=== PATIENT | male | born 1950 | race Caucasian/White ===

== ENCOUNTER 2016-04-09 08:23 | Emergency (ER) | payer MEDICARE ==
[2016-04-09 09:00] LABS: ABSOLUTE LYMPHOCYTES (AUTO) 0.5 10^3/uL (0.5-4.7); ABSOLUTE MONOCYTES (AUTO) 0.8 10^3/uL (0.1-1.4); ABSOLUTE NEUT (AUTO) 3.4 10^3/uL (1.7-8.2); BASOPHILS % (AUTO) 0.4 % (0-2); EOSINOPHILS % (AUTO) 0.5 % (0-6); HEMATOCRIT 38.4 % (37.9-51.0); HEMOGLOBIN 13.5 g/dL (13.5-17.0); HGB HCT DIFFERENCE 2.1; LYMPHOCYTES % (AUTO) 10.5 % (13-45); MEAN CORPUSCULAR HEMOGLOBIN 31.2 pg (27.0-33.4); MEAN CORPUSCULAR HGB CONC 35.1 g/dL (32.0-36.0); MEAN CORPUSCULAR VOLUME 89 fl (80-97); MONOCYTES % (AUTO) 17.4 % (3-13); RED BLOOD COUNT 4.32 10^6/uL (4.35-5.55); RED CELL DISTRIBUTION WIDTH 13.2 % (11.5-14.0); SEGMENTED NEUTROPHILS % (AUTO) 71.2 % (42-78); WHITE BLOOD COUNT 4.8 10^3/uL (4.0-10.5)
[2016-04-09 09:15] LABS: ALANINE AMINOTRANSFERASE 15 U/L (21-72); ALBUMIN 3.2 g/dL (3.5-5.0); ALKALINE PHOSPHATASE 74 U/L (38-126); ANION GAP 11 (5-19); ASPARTATE AMINO TRANSFERASE 29 U/L (17-59); BILIRUBIN,TOTAL 1.7 mg/dL (0.2-1.3); BLOOD UREA NITROGEN 19 mg/dL (7-20); CALCIUM 8.4 mg/dL (8.4-10.2); CARBON DIOXIDE 23 mmol/L (22-30); CHLORIDE 104 mmol/L (98-107); CREATINE KINASE 345 U/L (55-170); CREATININE RESULT 1.03 mg/dL (0.52-1.25); GLUCOSE 98 mg/dL (75-110); POTASSIUM 4.1 mmol/L (3.6-5.0); SODIUM 137.8 mmol/L (137-145); TOTAL PROTEIN 6.6 g/dL (6.3-8.2)
[2016-04-09 09:26] LABS: CREATINE KINASE MB 0.83 ng/mL (<4.55); TROPONIN I 0.017 ng/mL
--- NOTE | 2016-04-09 11:01 | EKG REPORT ---
SEVERITY:- ABNORMAL ECG - SINUS RHYTHM MULTIPLE ATRIAL PREMATURE COMPLEXES NONSPECIFIC INTRAVENTRICULAR CONDUCTION DELAY NONSPECIFIC ST-T CHANGES- INFERIOR LEADS : Confirmed by: Jose Miguel Small MD 09-Apr-2016 11:00:57
[2016-04-09 11:26] LABS: APPEARANCE,URINE CLEAR; BILIRUBIN,URINE NEGATIVE (NEGATIVE); GLUCOSE, URINE NEGATIVE (NEGATIVE); KETONES,URINE 25 mg/dL (NEGATIVE); LEUKOCYTE ESTERASE,URINE NEGATIVE (NEGATIVE); NITRITE,URINE NEGATIVE (NEGATIVE); PROTEIN,URINE 30 mg/dL (NEGATIVE); URINE SPECIFIC GRAVITY 1.023
--- NOTE | 2016-04-09 11:58 | ER Document Report ---
ED General - General Chief Complaint: General Weakness Stated Complaint: DIZZINESS Mode of Arrival: Medic Information source: Patient Notes: Patient presents to the emergency department via EMS for 3 days of flu symptoms. Patient reports became lightheaded when he was walking out the door today and he was assisted to the ground. Patient reports that he hasn't been able to eat that much for the past few days but is drinking okay. Patient reports he also has had a nonproductive cough for the past couple days. Denies fever vomiting but reports he did have little bit of diarrhea on . Reports history of Parkinson's acid reflux. TRAVEL OUTSIDE OF THE [place] IN LAST 30 DAYS: No - HPI Onset: Other - 3 days Onset/Duration: Persistent Quality of pain: Achy Associated symptoms: Nonproductive cough Exacerbated by: Denies Relieved by: Denies Similar symptoms previously: No Recently seen / treated by doctor: No - Related Data Allergies/Adverse Reactions: No Known Allergies Allergy (Unverified 01/14/16 07:45) Past Medical History - General Information source: Patient - Social History Smoking Status: Unknown if Ever Smoked Cigarette use (# per day): No Frequency of alcohol use: None Drug Abuse: None Lives with: Other - [facility] Family History: Reviewed & Not Pertinent - Medical History Medical History: Other - parkinsons GI Medical History: Reports: Hx Gastroesophageal Reflux Disease Psychiatric Medical History: Reports: Hx Depression Surgical Hx: Negative Past Surgical History: Reports: Other - electric stimulator - Immunizations Hx Diphtheria, Pertussis, Tetanus Vaccination: Yes Review of Systems - Review of Systems Notes: Review HPI for review of systems., All other systems negative Physical Exam - Vital signs Vitals: Resp Pulse Ox 23 H 96 04/09/16 08:43 04/09/16 08:43 - Notes Notes: PHYSICAL EXAMINATION: GENERAL: nontoxic looking HEAD: Atraumatic, normocephalic. EYES: Pupils equal round and reactive to light, extraocular movements intact, sclera anicteric, conjunctiva are normal. ENT: nares patent, oropharynx clear without exudates. Moist mucous membranes. NECK: Normal range of motion, supple without lymphadenopathy LUNGS: RR even/unlabored decreased, +rhonchi, . 02sat 97% HEART: Regular rate and rhythm without murmurs ABDOMEN: Soft, no tenderness. No guarding, no rebound BACK: No c/o pain EXTREMITIES: Normal range of motion, no pitting edema. No cyanosis. NEUROLOGICAL: Cranial nerves grossly intact. PSYCH: Normal mood, normal affect. SKIN: Warm, Dry, normal turgor, no rashes or lesions noted Course - Re-evaluation Re-evalutation: 04/09/16 patient was instructed on pneumonia. Patient was instructed on medications importance of taking and follow-up with his primary care provider or return to the ER for concerns. He verbalized understanding. - Vital Signs Vital signs: Temp Pulse Resp BP Pulse Ox 97.4 F 68 20 108/68 97 04/09/16 12:35 04/09/16 12:35 04/09/16 12:35 04/09/16 12:35 04/09/16 12:35 - Laboratory Result Diagrams: 04/09/16 08:45 04/09/16 08:45 Laboratory results interpreted by me: 04/09/16 04/09/16 04/09/16 08:45 08:45 11:00 RBC 4.32 L Plt Count 101 L Lymphocytes % 10.5 L Monocytes % 17.4 H Total Bilirubin 1.7 H ALT 15 L Creatine Kinase 345 H Albumin 3.2 L Urine Protein 30 H Urine Ketones 25 H Urine Urobilinogen 2.0 H Discharge - Discharge Clinical Impression: Flu-like symptoms, Elevated blood pressure reading Pneumonia Qualifiers: Pneumonia type: due to unspecified organism Laterality: right Lung location: lower lobe of lung Qualified Code(s): J18.1 - Lobar pneumonia, unspecified organism Condition: Stable Disposition: HOME, SELF-CARE Instructions: Pneumonia (OM), Azithromycin (OM) Additional Instructions: *You have been evaluated for a cough, pneumonia, flu like symptoms, weakness *Take medication as prescribed *Increase fluids *Monitor your temperature, take Tylenol as indicated *Follow up with a primary care provider within 3 days for recheck *Return to ED for increasing fever, cough, worsening condition, changes, needs, trouble breathing, concerns Prescriptions: Azithromycin [Zithromax 250 mg Tablet] 250 mg PO ASDIR PRN #6 tablet PRN Reason: Forms: Elevated Blood Pressure
[2016-04-09 12:49] VITALS: BP 108/68
== END 2016-04-09 12:40 | disposition home or self-care (01) ==
LOC: ER 08:23
DX: J18.1 Lobar pneumonia, unspecified organism (principal); R03.0 Elevated blood-pressure reading, without diagnosis of hypertension; R53.1 Weakness; R42 Dizziness and giddiness; R05 Cough; R19.7 Diarrhea, unspecified; G20 Parkinson's disease
CPT/HCPCS: 36415; 71020; 80053; 81001; 82550; 82553; 84484; 85025; 87804; 93005; 93010; 99284

== ENCOUNTER 2016-04-14 13:23 | Inpatient (IN) | payer MEDICARE ==
[2016-04-14 15:40] LABS: ABSOLUTE LYMPHOCYTES (AUTO) 0.9 10^3/uL (0.5-4.7); ABSOLUTE MONOCYTES (AUTO) 1.3 10^3/uL (0.1-1.4); ABSOLUTE NEUT (AUTO) 8.1 10^3/uL (1.7-8.2); BASOPHILS % (AUTO) 0.1 % (0-2); EOSINOPHILS % (AUTO) 0.2 % (0-6); HEMATOCRIT 37.7 % (37.9-51.0); HGB HCT DIFFERENCE 1.3; LYMPHOCYTES % (AUTO) 8.6 % (13-45); MEAN CORPUSCULAR HEMOGLOBIN 30.8 pg (27.0-33.4); MEAN CORPUSCULAR HGB CONC 34.6 g/dL (32.0-36.0); MEAN CORPUSCULAR VOLUME 89 fl (80-97); MONOCYTES % (AUTO) 12.7 % (3-13); RED BLOOD COUNT 4.24 10^6/uL (4.35-5.55); RED CELL DISTRIBUTION WIDTH 12.9 % (11.5-14.0); SEGMENTED NEUTROPHILS % (AUTO) 78.4 % (42-78); WHITE BLOOD COUNT 10.4 10^3/uL (4.0-10.5)
[2016-04-14] MEDS ORDERED: CEFTRIAXONE 1 GM/D5W RTU 1 GM/50 ML RTUPB IV ONE (16:00)
[2016-04-14 16:19] LABS: ALANINE AMINOTRANSFERASE 15 U/L (21-72); ALBUMIN 3.4 g/dL (3.5-5.0); ALKALINE PHOSPHATASE 74 U/L (38-126); ANION GAP 11 (5-19); ASPARTATE AMINO TRANSFERASE 23 U/L (17-59); BLOOD UREA NITROGEN 18 mg/dL (7-20); CALCIUM 8.8 mg/dL (8.4-10.2); CARBON DIOXIDE 25 mmol/L (22-30); CHLORIDE 100 mmol/L (98-107); CREATININE RESULT 1.02 mg/dL (0.52-1.25); GLUCOSE 101 mg/dL (75-110); SODIUM 135.8 mmol/L (137-145); TOTAL PROTEIN 7.3 g/dL (6.3-8.2)
[2016-04-14] MEDS ORDERED: LEVOFLOXACIN 750 MG/D5W RTU 750 MG/150 ML RTUPB IV ONE (17:00)
[2016-04-14 17:45] LABS: APPEARANCE,URINE SLIGHTLY-CLOUDY; BILIRUBIN,URINE NEGATIVE (NEGATIVE); GLUCOSE, URINE NEGATIVE (NEGATIVE); KETONES,URINE TRACE mg/dL (NEGATIVE); LEUKOCYTE ESTERASE,URINE NEGATIVE (NEGATIVE); NITRITE,URINE NEGATIVE (NEGATIVE); PROTEIN,URINE 100 mg/dL (NEGATIVE)
[2016-04-14] MEDS ORDERED: (PENDING PHARMACY ID) (Acetaminophen [Pain Relief] 650 MG) PO PRN (17:46)
[2016-04-14] MEDS ORDERED: (PENDING PHARMACY ID) (Temazepam [Restoril] 30 MG) PO PRN (17:46)
[2016-04-14] MEDS: CEFTRIAXONE 1 GM/D5W RTU 1 GM/50 ML RTUPB IV SCH (17:56)
[2016-04-14] MEDS ORDERED: FLUOXETINE HCL 20 MG CAPSULE PO ONE (18:00)
--- NOTE | 2016-04-14 18:00 | EKG REPORT ---
SEVERITY:- ABNORMAL ECG - SINUS RHYTHM BORDERLINE LEFT AXIS DEVIATION PROBABLE POSTERIOR INFARCT ABNORMAL T, CONSIDER ISCHEMIA, INFERIOR LEADS : Confirmed by: Yogesh Friedman 14-Apr-2016 17:59:46
[2016-04-14] MEDS ORDERED: ACETAMINOPHEN 325 MG TABLET PO PRN (18:07)
[2016-04-14] MEDS: LEVOFLOXACIN 750 MG/D5W RTU 750 MG/150 ML RTUPB IV SCH (18:10)
[2016-04-14] MEDS ORDERED: ENOXAPARIN SODIUM INJ 40 MG/0.4 ML DISP.SYRIN SUBCUT ONE (19:00)
[2016-04-14 19:57] LABS: HEMATOCRIT 33.6 % (37.9-51.0); HEMOGLOBIN 11.8 g/dL (13.5-17.0); HGB HCT DIFFERENCE 1.8; MEAN CORPUSCULAR HEMOGLOBIN 30.9 pg (27.0-33.4); MEAN CORPUSCULAR HGB CONC 35.1 g/dL (32.0-36.0); MEAN CORPUSCULAR VOLUME 88 fl (80-97); RED BLOOD COUNT 3.82 10^6/uL (4.35-5.55); RED CELL DISTRIBUTION WIDTH 13.5 % (11.5-14.0)
[2016-04-14 20:18] LABS: PROTHROMBIN TIME 15.7 SEC (11.4-15.4)
[2016-04-14 20:24] LABS: CREATININE RESULT 0.88 mg/dL (0.52-1.25)
[2016-04-14] MEDS: CARBIDOPA/LEVODOPA ER 50-200 MG TABLET.SA PO SCH (21:31)
[2016-04-14] MEDS: TEMAZEPAM 15 MG CAPSULE PO PRN (21:31)
[2016-04-15] MEDS: LANSOPRAZOLE 30 MG TAB.RAP.DR PO SCH (05:31)
[2016-04-15] MEDS: ENOXAPARIN SODIUM INJ 40 MG/0.4 ML DISP.SYRIN SUBCUT SCH (08:04)
[2016-04-15] MEDS: ROPINIROLE HCL 1 MG TABLET PO SCH ×3 (08:07→17:24)
[2016-04-15] MEDS: FLUOXETINE HCL 20 MG CAPSULE PO SCH (09:44)
[2016-04-15] MEDS: CARBIDOPA/LEVODOPA ER 50-200 MG TABLET.SA PO SCH ×3 (11:32→21:24)
--- NOTE | 2016-04-15 15:14 | PDOC H&P ---
History of Present Illness Admission Date/PCP: 04/14/16 13:23 DOM PEGUERO MD History of Present Illness: LA GRIGSBY is a 65 year old male with history of Parkinson disease, resident of [facility], he was seen in the emergency room on and he was diagnosed with pneumonia, he was prescribed Zithromax. The chest x-ray done in the emergency room on 04/09/2016 showed subsegmental airspace disease in the right lower lobe,No effusion. He came to the office today because of worsening symptoms, cough, vomiting, chest x-ray was done it showed stable left lower lobe airspace opacity,There is a new right upper lobe air space disease consistent with pneumonia. Past Medical History Cardiac Medical History: Reports: Hypertension Neurological Medical History: Reports: Other - Parkinson disease GI Medical History: Reports: Gastroesophageal Reflux Disease Psychiatric Medical History: Reports: Depression Past Surgical History Past Surgical History: Reports: Other - electric stimulator Social History Smoking Status: Former Smoker Frequency of Alcohol Use: None Hx Recreational Drug Use: No Drugs: None Hx Prescription Drug Abuse: No Family History Family History: Reviewed & Not Pertinent Parental Family History Reviewed: Yes Children Family History Reviewed: Yes Sibling(s) Family History Reviewed.: Yes Medication/Allergy Home Medications: Acetaminophen [Pain Relief] 650 mg PO Q4HP PRN 04/14/16 Carbidopa/Levodopa [Sinemet Cr 50-200 Tablet] 1 tab PO DAILY@,,04/14/16 Carbidopa/Levodopa [Sinemet Cr 50-200 Tablet] 2 tab PO QAM 04/14/16 Celecoxib [Celebrex 200 mg Capsule] 200 mg PO DAILY 04/14/16 Cyanocobalamin (Vitamin B-12) [Vitamin B-12] 1,000 mcg PO [id number] 04/14/16 Fluoxetine HCl [Prozac 20 mg Capsule] 20 mg PO DAILY 04/14/16 Omeprazole 40 mg PO QAM 04/14/16 Ropinirole HCl 1 mg PO DAILY@08,,04/14/16 Temazepam [Restoril] 30 mg PO HSP PRN 04/14/16 Allergies/Adverse Reactions: No Known Allergies Allergy (Unverified 01/14/16 07:45) Review of Systems Constitutional: PRESENT: chills, fatigue Ears: PRESENT: hearing changes Cardiovascular: ABSENT: as per HPI, chest pain, dyspnea on exertion, edema, orthropnea, palpitations, other Gastrointestinal: PRESENT: nausea, vomiting Musculoskeletal: PRESENT: back pain Neurological: PRESENT: abnormal speech, dizziness, tremor(s) Endocrine: ABSENT: as per HPI, cold intolerance, flushing, heat intolerance, menstrual abnormalities, polydipsia, polyphagia, polyuria, other Physical Exam Vital Signs: Temp Pulse Resp BP Pulse Ox 97.6 F 72 18 147/91 H 97 04/15/16 13:00 04/15/16 14:00 04/15/16 13:00 04/15/16 13:00 04/15/16 13:00 Intake & Output 04/14/16 04/15/16 04/16/16 06:59 06:59 06:59 Intake Total 1260 10 Output Total 1250 Balance 10 10 Weight 102.4 kg General appearance: PRESENT: obese Eye exam: PRESENT: PERRLA Respiratory exam: PRESENT: rales Cardiovascular exam: PRESENT: +S1, +S2 GI/Abdominal exam: PRESENT: soft Gentrourinary exam: PRESENT: lesions Neurological exam: PRESENT: alert, abnormal gait Focused psych exam: PRESENT: restlessness Results Laboratory Results: 04/14/16 19:46 04/14/16 19:46 04/14/16 04/14/16 04/14/16 15:10 15:10 17:25 WBC 10.4 RBC 4.24 L Hgb 13.0 L Hct 37.7 L MCV 89 MCH 30.8 MCHC 34.6 RDW 12.9 Plt Count 140 L Seg Neutrophils % 78.4 H Lymphocytes % 8.6 L Monocytes % 12.7 Eosinophils % 0.2 Basophils % 0.1 Absolute Neutrophils 8.1 Absolute Lymphocytes 0.9 Absolute Monocytes 1.3 Absolute Eosinophils 0.0 Absolute Basophils 0.0 Sodium 135.8 L Potassium 4.0 Chloride 100 Carbon Dioxide 25 Anion Gap 11 BUN 18 Creatinine 1.02 Est GFR ( Amer) > 60 Est GFR (Non-Af Amer) > 60 Glucose 101 Calcium 8.8 Total Bilirubin 2.0 H AST 23 ALT 15 L Alkaline Phosphatase 74 Total Protein 7.3 Albumin 3.4 L Urine Color DARK YELLOW Urine Appearance SLIGHTLY-CLOUDY Urine pH 6.0 Ur Specific Kidder 1.020 Urine Protein 100 H Urine Glucose (UA) NEGATIVE Urine Ketones TRACE H Urine Blood NEGATIVE Urine Nitrite NEGATIVE Ur Leukocyte Esterase NEGATIVE Urine WBC (Auto) 1 Urine RBC (Auto) 1 04/14/16 04/14/16 19:46 19:46 WBC 7.0 RBC 3.82 L Hgb 11.8 L Hct 33.6 L MCV 88 MCH 30.9 MCHC 35.1 RDW 13.5 Plt Count 122 L Seg Neutrophils % Lymphocytes % Monocytes % Eosinophils % Basophils % Absolute Neutrophils Absolute Lymphocytes Absolute Monocytes Absolute Eosinophils Absolute Basophils Sodium Potassium Chloride Carbon Dioxide Anion Gap BUN Creatinine 0.88 Est GFR ( Amer) > 60 Est GFR (Non-Af Amer) > 60 Glucose Calcium Total Bilirubin AST ALT Alkaline Phosphatase Total Protein Albumin Urine Color Urine Appearance Urine pH Ur Specific Kidder Urine Protein Urine Glucose (UA) Urine Ketones Urine Blood Urine Nitrite Ur Leukocyte Esterase Urine WBC (Auto) Urine RBC (Auto) Impressions: Chest X-Ray 04/14/16 00:00 IMPRESSION: NEW RIGHT UPPER LOBE AIRSPACE DISEASE COMPATIBLE WITH PNEUMONIA Head CT 04/14/16 00:00 IMPRESSION: NO ACUTE INTRACRANIAL PROCESS. NO SIGNIFICANT CHANGE FROM PRIOR STUDY. Assessment & Plan - Diagnosis (1) Pneumonia Qualifiers: Pneumonia type: due to unspecified organism Laterality: right Lung location: upper lobe of lung Qualified Code(s): J18.1 - Lobar pneumonia, unspecified organism Is this a current diagnosis for this admission?: YesPlan: He has right upper lobe pneumonia, about 4 days ago,He had left lower lobe pneumonia. He has failed outpatient treatment, 4 days ago when he was seen in emergency room he had the left lower lobe pneumonia and he was prescribed Zithromax. He now have right upper lobe pneumonia. This is new suggesting worsening of the pneumonia process. Is admitted to be treated with IV antibiotic, Rocephin and and Levaquin (2) Failure of outpatient treatment Is this a current diagnosis for this admission?: Yes (3) Parkinson disease Is this a current diagnosis for this admission?: Yes
[2016-04-15] MEDS: CEFTRIAXONE 1 GM/D5W RTU 1 GM/50 ML RTUPB IV SCH (17:23)
[2016-04-15] MEDS: LEVOFLOXACIN 750 MG/D5W RTU 750 MG/150 ML RTUPB IV SCH (18:00)
[2016-04-15] MEDS: TEMAZEPAM 15 MG CAPSULE PO PRN (21:24)
[2016-04-16] MEDS: LANSOPRAZOLE 30 MG TAB.RAP.DR PO SCH (06:39)
[2016-04-16] MEDS: ROPINIROLE HCL 1 MG TABLET PO SCH ×3 (08:13→17:11)
[2016-04-16] MEDS: ENOXAPARIN SODIUM INJ 40 MG/0.4 ML DISP.SYRIN SUBCUT SCH (08:14)
[2016-04-16] MEDS: CARBIDOPA/LEVODOPA ER 50-200 MG TABLET.SA PO SCH ×3 (11:39→21:57)
[2016-04-16] MEDS: FLUOXETINE HCL 20 MG CAPSULE PO SCH (11:39)
[2016-04-16] MEDS: CEFTRIAXONE 1 GM/D5W RTU 1 GM/50 ML RTUPB IV SCH (17:11)
--- NOTE | 2016-04-16 17:34 | PDOC PROGRESS REPORT ---
Subjective Progress Note for:: 04/16/16 Subjective:: Patient is improving. No new complaints Physical Exam Vital Signs: Temp Pulse Resp BP Pulse Ox 98.8 F 61 20 127/69 H 95 04/16/16 15:18 04/16/16 15:18 04/16/16 15:18 04/16/16 15:18 04/16/16 15:18 Intake & Output 04/15/16 04/16/16 04/17/16 06:59 06:59 06:59 Intake Total 1260 920 408 Output Total 1250 650 970 Balance 10 270 -562 Weight 102.4 kg 99.9 kg General appearance: PRESENT: no acute distress Eye exam: PRESENT: PERRLA Respiratory exam: PRESENT: crackles Cardiovascular exam: PRESENT: +S1, +S2 GI/Abdominal exam: PRESENT: soft Neurological exam: PRESENT: alert, CN II-XII grossly intact Results Laboratory Results: 04/14/16 19:46 04/14/16 19:46 04/14/16 17:25 Clean Catch Midstream Urine Culture - Final Mixed Urogenital Nicki Impressions: Chest X-Ray 04/14/16 00:00 IMPRESSION: NEW RIGHT UPPER LOBE AIRSPACE DISEASE COMPATIBLE WITH PNEUMONIA Head CT 04/14/16 00:00 IMPRESSION: NO ACUTE INTRACRANIAL PROCESS. NO SIGNIFICANT CHANGE FROM PRIOR STUDY. Assessment & Plan - Diagnosis (1) Pneumonia Qualifiers: Pneumonia type: due to unspecified organism Laterality: right Lung location: upper lobe of lung Qualified Code(s): J18.1 - Lobar pneumonia, unspecified organism Is this a current diagnosis for this admission?: Yes (2) Failure of outpatient treatment Is this a current diagnosis for this admission?: Yes (3) Parkinson disease Is this a current diagnosis for this admission?: Yes
[2016-04-16] MEDS: LEVOFLOXACIN 750 MG/D5W RTU 750 MG/150 ML RTUPB IV SCH (17:41)
[2016-04-16] MEDS: TEMAZEPAM 15 MG CAPSULE PO PRN (21:57)
[2016-04-17] MEDS: LANSOPRAZOLE 30 MG TAB.RAP.DR PO SCH (05:02)
[2016-04-17] MEDS: ROPINIROLE HCL 1 MG TABLET PO SCH ×3 (08:35→18:26)
[2016-04-17] MEDS: ENOXAPARIN SODIUM INJ 40 MG/0.4 ML DISP.SYRIN SUBCUT SCH (08:35)
[2016-04-17] MEDS: FLUOXETINE HCL 20 MG CAPSULE PO SCH (09:35)
[2016-04-17] MEDS: CARBIDOPA/LEVODOPA ER 50-200 MG TABLET.SA PO SCH ×3 (12:47→21:35)
[2016-04-17] MEDS: CEFTRIAXONE 1 GM/D5W RTU 1 GM/50 ML RTUPB IV SCH (18:27)
[2016-04-17] MEDS: LEVOFLOXACIN 750 MG/D5W RTU 750 MG/150 ML RTUPB IV SCH (18:27)
--- NOTE | 2016-04-17 20:38 | PDOC PROGRESS REPORT ---
Subjective Progress Note for:: 04/17/16 Subjective:: Patient seen by the bedside, he was admitted for pneumonia Physical Exam Vital Signs: Temp Pulse Resp BP Pulse Ox 98.2 F 65 22 H 115/74 98 04/17/16 16:58 04/17/16 16:58 04/17/16 16:58 04/17/16 16:58 04/17/16 16:58 Intake & Output 04/16/16 04/17/16 04/18/16 06:59 06:59 06:59 Intake Total 920 408 860 Output Total 650 1770 660 Balance 270 -1362 200 Weight 99.9 kg General appearance: PRESENT: no acute distress Eye exam: PRESENT: PERRLA Respiratory exam: PRESENT: crackles Cardiovascular exam: PRESENT: +S1, +S2 GI/Abdominal exam: PRESENT: soft Results Laboratory Results: 04/14/16 19:46 04/14/16 19:46 Impressions: Chest X-Ray 04/14/16 00:00 IMPRESSION: NEW RIGHT UPPER LOBE AIRSPACE DISEASE COMPATIBLE WITH PNEUMONIA Head CT 04/14/16 00:00 IMPRESSION: NO ACUTE INTRACRANIAL PROCESS. NO SIGNIFICANT CHANGE FROM PRIOR STUDY. Assessment & Plan - Diagnosis (1) Pneumonia Qualifiers: Pneumonia type: due to unspecified organism Laterality: right Lung location: upper lobe of lung Qualified Code(s): J18.1 - Lobar pneumonia, unspecified organism Is this a current diagnosis for this admission?: Yes (2) Failure of outpatient treatment Is this a current diagnosis for this admission?: Yes (3) Parkinson disease Is this a current diagnosis for this admission?: Yes
[2016-04-17] MEDS: TEMAZEPAM 15 MG CAPSULE PO PRN (21:39)
[2016-04-18] MEDS: LANSOPRAZOLE 30 MG TAB.RAP.DR PO SCH (05:24)
[2016-04-18] MEDS: ROPINIROLE HCL 1 MG TABLET PO SCH ×3 (07:51→17:38)
[2016-04-18] MEDS: ENOXAPARIN SODIUM INJ 40 MG/0.4 ML DISP.SYRIN SUBCUT SCH (07:51)
[2016-04-18] MEDS: FLUOXETINE HCL 20 MG CAPSULE PO SCH (09:18)
[2016-04-18] MEDS: CARBIDOPA/LEVODOPA ER 50-200 MG TABLET.SA PO SCH ×3 (14:25→21:16)
[2016-04-18] MEDS: CEFTRIAXONE 1 GM/D5W RTU 1 GM/50 ML RTUPB IV SCH (17:38)
[2016-04-18] MEDS: LEVOFLOXACIN 750 MG TABLET PO SCH (17:38)
--- NOTE | 2016-04-18 18:03 | PDOC PROGRESS REPORT ---
Subjective Progress Note for:: 04/18/16 Subjective:: Patient we be appropriate for [facility] home for rehabilitation. We will consult discharge planning to make arrangement for that Physical Exam Vital Signs: Temp Pulse Resp BP Pulse Ox 97.9 F 68 18 116/67 97 04/18/16 15:43 04/18/16 15:43 04/18/16 15:43 04/18/16 15:43 04/18/16 15:43 Intake & Output 04/17/16 04/18/16 04/19/16 06:59 06:59 06:59 Intake Total 408 1420 1000 Output Total 1770 1260 900 Balance -1362 160 100 General appearance: PRESENT: no acute distress Eye exam: PRESENT: PERRLA Respiratory exam: PRESENT: clear to auscultation cayetano Cardiovascular exam: PRESENT: +S1, +S2 GI/Abdominal exam: PRESENT: soft Neurological exam: PRESENT: alert Results Laboratory Results: 04/14/16 19:46 04/14/16 19:46 Impressions: Chest X-Ray 04/14/16 00:00 IMPRESSION: NEW RIGHT UPPER LOBE AIRSPACE DISEASE COMPATIBLE WITH PNEUMONIA Head CT 04/14/16 00:00 IMPRESSION: NO ACUTE INTRACRANIAL PROCESS. NO SIGNIFICANT CHANGE FROM PRIOR STUDY. Assessment & Plan - Diagnosis (1) Pneumonia Qualifiers: Pneumonia type: due to unspecified organism Laterality: right Lung location: upper lobe of lung Qualified Code(s): J18.1 - Lobar pneumonia, unspecified organism Is this a current diagnosis for this admission?: YesPlan: Patient to continue IV antibiotic and we make arrangement for [facility] (2) Failure of outpatient treatment Is this a current diagnosis for this admission?: Yes (3) Parkinson disease Is this a current diagnosis for this admission?: Yes
[2016-04-18] MEDS: TEMAZEPAM 15 MG CAPSULE PO PRN (21:16)
[2016-04-19] MEDS: LANSOPRAZOLE 30 MG TAB.RAP.DR PO SCH (05:14)
[2016-04-19] MEDS: ROPINIROLE HCL 1 MG TABLET PO SCH ×3 (08:02→17:29)
[2016-04-19] MEDS: ENOXAPARIN SODIUM INJ 40 MG/0.4 ML DISP.SYRIN SUBCUT SCH (08:02)
[2016-04-19] MEDS: FLUOXETINE HCL 20 MG CAPSULE PO SCH (10:05)
[2016-04-19] MEDS: CARBIDOPA/LEVODOPA ER 50-200 MG TABLET.SA PO SCH ×3 (14:10→21:38)
--- NOTE | 2016-04-19 16:50 | PDOC PROGRESS REPORT ---
Subjective Progress Note for:: 04/19/16 Subjective:: Patient seen by the bedside, the plan is to transfer him to rehabilitation, the discharge planning is working on that Physical Exam Vital Signs: Temp Pulse Resp BP Pulse Ox 97.7 F 61 20 129/88 H 100 04/19/16 08:15 04/19/16 14:00 04/19/16 08:15 04/19/16 08:15 04/19/16 08:15 Intake & Output 04/18/16 04/19/16 04/20/16 06:59 06:59 06:59 Intake Total 1420 1765 Output Total 1260 1700 Balance 160 65 General appearance: PRESENT: no acute distress Eye exam: PRESENT: PERRLA Respiratory exam: PRESENT: clear to auscultation cayetano Cardiovascular exam: PRESENT: +S1, +S2 Results Laboratory Results: 04/14/16 19:46 04/14/16 19:46 04/14/16 15:25 Blood Blood Culture - Final NO GROWTH IN 5 DAYS 04/14/16 15:10 Blood Blood Culture - Final NO GROWTH IN 5 DAYS Impressions: Chest X-Ray 04/14/16 00:00 IMPRESSION: NEW RIGHT UPPER LOBE AIRSPACE DISEASE COMPATIBLE WITH PNEUMONIA Head CT 04/14/16 00:00 IMPRESSION: NO ACUTE INTRACRANIAL PROCESS. NO SIGNIFICANT CHANGE FROM PRIOR STUDY. Assessment & Plan - Diagnosis (1) Pneumonia Qualifiers: Pneumonia type: due to unspecified organism Laterality: right Lung location: upper lobe of lung Qualified Code(s): J18.1 - Lobar pneumonia, unspecified organism Is this a current diagnosis for this admission?: Yes (2) Failure of outpatient treatment Is this a current diagnosis for this admission?: Yes (3) Parkinson disease Is this a current diagnosis for this admission?: Yes
[2016-04-19] MEDS: LEVOFLOXACIN 750 MG TABLET PO SCH (17:29)
[2016-04-19] MEDS: CEFTRIAXONE 1 GM/D5W RTU 1 GM/50 ML RTUPB IV SCH (17:29)
[2016-04-19] MEDS: TEMAZEPAM 15 MG CAPSULE PO PRN (21:38)
[2016-04-20] MEDS: LANSOPRAZOLE 30 MG TAB.RAP.DR PO SCH (06:03)
[2016-04-20] MEDS: ROPINIROLE HCL 1 MG TABLET PO SCH ×3 (07:59→17:10)
[2016-04-20] MEDS: FLUOXETINE HCL 20 MG CAPSULE PO SCH (10:02)
[2016-04-20] MEDS: CARBIDOPA/LEVODOPA ER 50-200 MG TABLET.SA PO SCH ×3 (12:54→21:57)
[2016-04-20] MEDS: LEVOFLOXACIN 750 MG TABLET PO SCH (17:10)
[2016-04-20] MEDS: CEFTRIAXONE 1 GM/D5W RTU 1 GM/50 ML RTUPB IV SCH (17:10)
[2016-04-20] MEDS: TEMAZEPAM 15 MG CAPSULE PO PRN (21:57)
[2016-04-21] MEDS: LANSOPRAZOLE 30 MG TAB.RAP.DR PO SCH (06:30)
[2016-04-21] MEDS: FLUOXETINE HCL 20 MG CAPSULE PO SCH (09:41)
[2016-04-21] MEDS: ROPINIROLE HCL 1 MG TABLET PO SCH ×3 (09:41→17:19)
[2016-04-21] MEDS: CARBIDOPA/LEVODOPA ER 50-200 MG TABLET.SA PO SCH ×3 (12:40→22:55)
--- NOTE | 2016-04-21 16:20 | PDOC PROGRESS REPORT ---
Subjective Progress Note for:: 04/20/16 Subjective:: Patient was seen by the bedside. Still waiting for a bed for placement in the residential for rehabilitation Physical Exam Vital Signs: Temp Pulse Resp BP Pulse Ox 98.6 F 69 20 106/73 96 04/20/16 16:00 04/20/16 16:00 04/20/16 16:00 04/20/16 16:00 04/20/16 16:00 Intake & Output 04/19/16 04/20/16 04/21/16 06:59 06:59 06:59 Intake Total 1765 1350 0 Output Total 1700 2070 280 Balance 65 -720 -280 General appearance: PRESENT: no acute distress Eye exam: PRESENT: PERRLA Respiratory exam: PRESENT: clear to auscultation cayetano Cardiovascular exam: PRESENT: +S1, +S2 GI/Abdominal exam: PRESENT: soft Results Laboratory Results: 04/14/16 19:46 04/14/16 19:46 04/14/16 15:25 Blood Blood Culture - Final NO GROWTH IN 5 DAYS 04/14/16 15:10 Blood Blood Culture - Final NO GROWTH IN 5 DAYS Impressions: Chest X-Ray 04/14/16 00:00 IMPRESSION: NEW RIGHT UPPER LOBE AIRSPACE DISEASE COMPATIBLE WITH PNEUMONIA Head CT 04/14/16 00:00 IMPRESSION: NO ACUTE INTRACRANIAL PROCESS. NO SIGNIFICANT CHANGE FROM PRIOR STUDY. Assessment & Plan - Diagnosis (1) Pneumonia Qualifiers: Pneumonia type: due to unspecified organism Laterality: right Lung location: upper lobe of lung Qualified Code(s): J18.1 - Lobar pneumonia, unspecified organism Is this a current diagnosis for this admission?: Yes (2) Failure of outpatient treatment Is this a current diagnosis for this admission?: Yes (3) Parkinson disease Is this a current diagnosis for this admission?: Yes
--- NOTE | 2016-04-21 16:22 | PDOC PROGRESS REPORT ---
Subjective Progress Note for:: 04/21/16 Subjective:: Patient was seen by the bedside. Still waiting for a bed for placement in the [facility] for rehabilitation Physical Exam Vital Signs: Temp Pulse Resp BP Pulse Ox 98.3 F 68 17 108/85 98 04/21/16 15:23 04/21/16 15:23 04/21/16 15:23 04/21/16 15:23 04/21/16 15:23 Intake & Output 04/20/16 04/21/16 04/22/16 06:59 06:59 06:59 Intake Total 1350 450 603 Output Total 2070 580 1000 Balance -720 130 -397 Weight 102.8 kg General appearance: PRESENT: no acute distress Eye exam: PRESENT: PERRLA Respiratory exam: PRESENT: clear to auscultation cayetano Cardiovascular exam: PRESENT: +S1, +S2 GI/Abdominal exam: PRESENT: soft Neurological exam: PRESENT: alert Results Laboratory Results: 04/14/16 19:46 04/14/16 19:46 Impressions: Chest X-Ray 04/14/16 00:00 IMPRESSION: NEW RIGHT UPPER LOBE AIRSPACE DISEASE COMPATIBLE WITH PNEUMONIA Head CT 04/14/16 00:00 IMPRESSION: NO ACUTE INTRACRANIAL PROCESS. NO SIGNIFICANT CHANGE FROM PRIOR STUDY. Assessment & Plan - Diagnosis (1) Pneumonia Qualifiers: Pneumonia type: due to unspecified organism Laterality: right Lung location: upper lobe of lung Qualified Code(s): J18.1 - Lobar pneumonia, unspecified organism Is this a current diagnosis for this admission?: Yes (2) Failure of outpatient treatment Is this a current diagnosis for this admission?: Yes (3) Parkinson disease Is this a current diagnosis for this admission?: Yes
[2016-04-21] MEDS: TEMAZEPAM 15 MG CAPSULE PO PRN (22:57)
[2016-04-22] MEDS: LANSOPRAZOLE 30 MG TAB.RAP.DR PO SCH (07:05)
[2016-04-22] MEDS: ROPINIROLE HCL 1 MG TABLET PO SCH ×3 (09:21→17:06)
[2016-04-22] MEDS: FLUOXETINE HCL 20 MG CAPSULE PO SCH (09:22)
--- NOTE | 2016-04-22 10:45 | PDOC PROGRESS REPORT ---
Subjective Progress Note for:: 04/22/16 Subjective:: Patient is currently doing same and waiting for transfer to the rehabilitation. Patient's denied any other complaints and n Physical Exam Vital Signs: Temp Pulse Resp BP Pulse Ox 98.1 F 70 20 120/83 98 04/22/16 07:32 04/22/16 07:32 04/22/16 07:32 04/22/16 07:32 04/22/16 07:32 Intake & Output 04/21/16 04/22/16 04/23/16 06:59 06:59 06:59 Intake Total 450 2123 Output Total 580 2050 Balance -130 73 Weight 102.8 kg 97.2 kg General appearance: PRESENT: no acute distress Eye exam: PRESENT: PERRLA Mouth exam: PRESENT: neck supple Respiratory exam: PRESENT: clear to auscultation cayetano Cardiovascular exam: PRESENT: +S1, +S2 GI/Abdominal exam: PRESENT: normal bowel sounds, soft. ABSENT: tenderness Extremities exam: ABSENT: pedal edema Neurological exam: PRESENT: alert, awake Results Laboratory Results: 04/14/16 19:46 04/14/16 19:46 Impressions: Chest X-Ray 04/14/16 00:00 IMPRESSION: NEW RIGHT UPPER LOBE AIRSPACE DISEASE COMPATIBLE WITH PNEUMONIA Head CT 04/14/16 00:00 IMPRESSION: NO ACUTE INTRACRANIAL PROCESS. NO SIGNIFICANT CHANGE FROM PRIOR STUDY. Assessment & Plan - Diagnosis (1) Parkinson disease Is this a current diagnosis for this admission?: YesPlan: Stable (2) Pneumonia Qualifiers: Pneumonia type: due to unspecified organism Laterality: right Lung location: upper lobe of lung Qualified Code(s): J18.1 - Lobar pneumonia, unspecified organism Is this a current diagnosis for this admission?: YesPlan: Continuous current medication - Time Time Spent with patient: 15-24 minutes Medications reviewed and adjusted accordingly: Yes Anticipated discharge: SNF - Inpatient Certification Medical Necessity: Need Close Monitoring Due to Risk of Patient Decompensation Post Hospital Care: D/C Accounts Receivable Coordinator Documentation
[2016-04-22] MEDS: CARBIDOPA/LEVODOPA ER 50-200 MG TABLET.SA PO SCH ×3 (12:41→21:32)
[2016-04-23] MEDS: LANSOPRAZOLE 30 MG TAB.RAP.DR PO SCH (05:06)
[2016-04-23] MEDS: ROPINIROLE HCL 1 MG TABLET PO SCH ×3 (08:25→17:35)
[2016-04-23] MEDS: FLUOXETINE HCL 20 MG CAPSULE PO SCH (10:41)
--- NOTE | 2016-04-23 11:16 | PDOC PROGRESS REPORT ---
Subjective Progress Note for:: 04/23/16 Subjective:: Patient is currently doing same and waiting for transfer to the rehabilitation. Patient's denied any other complaints and n Physical Exam Vital Signs: Temp Pulse Resp BP Pulse Ox 97.7 F 55 L 20 140/85 H 98 04/23/16 07:38 04/23/16 07:38 04/23/16 07:38 04/23/16 07:38 04/23/16 07:38 Intake & Output 04/22/16 04/23/16 04/24/16 06:59 06:59 06:59 Intake Total 3 1510 Output Total 2049 850 Balance 73 660 Weight 97.2 kg General appearance: PRESENT: no acute distress, well-developed, well-nourished Head exam: PRESENT: atraumatic, normocephalic Eye exam: PRESENT: conjunctiva pink, EOMI, PERRLA. ABSENT: scleral icterus Ear exam: PRESENT: normal external ear exam Mouth exam: PRESENT: moist, tongue midline Neck exam: PRESENT: full ROM. ABSENT: carotid bruit, JVD, lymphadenopathy, thyromegaly Respiratory exam: PRESENT: clear to auscultation cayetano Cardiovascular exam: PRESENT: RRR. ABSENT: diastolic murmur, rubs, systolic murmur Pulses: PRESENT: normal dorsalis pedis pul, +2 pedal pulses bilateral Vascular exam: PRESENT: normal capillary refill GI/Abdominal exam: PRESENT: normal bowel sounds, soft. ABSENT: distended, guarding, mass, organolmegaly, rebound, tenderness Rectal exam: PRESENT: deferred Neurological exam: PRESENT: alert, altered, awake. ABSENT: motor sensory deficit Psychiatric exam: PRESENT: appropriate affect, normal mood. ABSENT: homicidal ideation, suicidal ideation Skin exam: PRESENT: dry, intact, warm. ABSENT: cyanosis, rash Results Laboratory Results: 04/14/16 19:46 04/14/16 19:46 Impressions: Chest X-Ray 04/14/16 00:00 IMPRESSION: NEW RIGHT UPPER LOBE AIRSPACE DISEASE COMPATIBLE WITH PNEUMONIA Head CT 04/14/16 00:00 IMPRESSION: NO ACUTE INTRACRANIAL PROCESS. NO SIGNIFICANT CHANGE FROM PRIOR STUDY. Assessment & Plan - Diagnosis (1) Parkinson disease Is this a current diagnosis for this admission?: YesPlan: Stable (2) Pneumonia Qualifiers: Pneumonia type: due to unspecified organism Laterality: right Lung location: upper lobe of lung Qualified Code(s): J18.1 - Lobar pneumonia, unspecified organism Is this a current diagnosis for this admission?: YesPlan: Continuous current medication - Time Time Spent with patient: 15-24 minutes Medications reviewed and adjusted accordingly: Yes Anticipated discharge: SNF Within: Other - Inpatient Certification Medical Necessity: Need Close Monitoring Due to Risk of Patient Decompensation, Need for IV Antibiotics Post Hospital Care: D/C Bilingual Loan Processor Documentation - Plan Summary Plan Summary: Continuous current medication and wait for possible rehabilitation
[2016-04-23] MEDS: CARBIDOPA/LEVODOPA ER 50-200 MG TABLET.SA PO SCH ×3 (12:21→21:46)
[2016-04-24] MEDS: LANSOPRAZOLE 30 MG TAB.RAP.DR PO SCH (05:43)
[2016-04-24] MEDS: ROPINIROLE HCL 1 MG TABLET PO SCH ×3 (09:52→17:15)
[2016-04-24] MEDS: FLUOXETINE HCL 20 MG CAPSULE PO SCH (09:52)
[2016-04-24] MEDS: CARBIDOPA/LEVODOPA ER 50-200 MG TABLET.SA PO SCH ×3 (12:00→22:02)
--- NOTE | 2016-04-24 19:37 | PDOC PROGRESS REPORT ---
Subjective Progress Note for:: 04/24/16 Subjective:: Patient seen by the bedside there is no new complaints Physical Exam Vital Signs: Temp Pulse Resp BP Pulse Ox 98.4 F 68 20 85/58 L 99 04/24/16 17:09 04/24/16 17:09 04/24/16 17:09 04/24/16 17:09 04/24/16 11:56 Intake & Output 04/23/16 04/24/16 04/25/16 06:59 06:59 06:59 Intake Total 1510 1320 760 Output Total 850 1885 600 Balance 660 -565 160 General appearance: PRESENT: no acute distress Eye exam: PRESENT: PERRLA Respiratory exam: PRESENT: rales Cardiovascular exam: PRESENT: +S1, +S2 GI/Abdominal exam: PRESENT: soft Neurological exam: PRESENT: alert Results Laboratory Results: 04/14/16 19:46 04/14/16 19:46 Impressions: Chest X-Ray 04/14/16 00:00 IMPRESSION: NEW RIGHT UPPER LOBE AIRSPACE DISEASE COMPATIBLE WITH PNEUMONIA Head CT 04/14/16 00:00 IMPRESSION: NO ACUTE INTRACRANIAL PROCESS. NO SIGNIFICANT CHANGE FROM PRIOR STUDY. Assessment & Plan - Diagnosis (1) Pneumonia Qualifiers: Pneumonia type: due to unspecified organism Laterality: right Lung location: upper lobe of lung Qualified Code(s): J18.1 - Lobar pneumonia, unspecified organism Is this a current diagnosis for this admission?: Yes (2) Failure of outpatient treatment Is this a current diagnosis for this admission?: Yes (3) Parkinson disease Is this a current diagnosis for this admission?: Yes
[2016-04-24] MEDS: TEMAZEPAM 15 MG CAPSULE PO PRN (22:03)
[2016-04-25] MEDS: LANSOPRAZOLE 30 MG TAB.RAP.DR PO SCH (05:02)
[2016-04-25] MEDS: ROPINIROLE HCL 1 MG TABLET PO SCH ×3 (08:38→18:02)
[2016-04-25] MEDS: FLUOXETINE HCL 20 MG CAPSULE PO SCH (10:15)
[2016-04-25] MEDS: CARBIDOPA/LEVODOPA ER 50-200 MG TABLET.SA PO SCH ×3 (12:05→21:09)
--- NOTE | 2016-04-25 17:52 | PDOC TRANSFER SUMMARY ---
General - Admit/Disc Date/PCP Admission Date/Primary Care Provider: 04/14/16 13:23 DOM PEGUERO MD Discharge Date: 04/25/16 - Discharge Diagnosis (1) Pneumonia Is this a current diagnosis for this admission?: Yes (2) Failure of outpatient treatment Is this a current diagnosis for this admission?: Yes (3) Parkinson disease Is this a current diagnosis for this admission?: Yes - Additional Information Home Medications: Acetaminophen [Pain Relief] 650 mg PO Q4HP PRN 04/14/16 Carbidopa/Levodopa [Sinemet Cr 50-200 Tablet] 1 tab PO DAILY@,,04/14/16 Carbidopa/Levodopa [Sinemet Cr 50-200 Tablet] 2 tab PO QAM 04/14/16 Cyanocobalamin (Vitamin B-12) [Vitamin B-12] 1,000 mcg PO U2MHGCD 04/14/16 Fluoxetine HCl [Prozac 20 mg Capsule] 20 mg PO DAILY 04/14/16 Omeprazole 40 mg PO QAM 04/14/16 Ropinirole HCl 1 mg PO DAILY@08,,04/14/16 Temazepam [Restoril] 30 mg PO HSP PRN 04/14/16 History of Present Illness Admission Date/PCP: 04/14/16 13:23 DOM PEGUERO MD History of Present Illness: LA GRIGSBY is a 65 year old male with history of Parkinson disease, resident of [facility] assisted [facility] facility, he was seen in the emergency room on and he was diagnosed with pneumonia, he was prescribed Zithromax. The chest x-ray done in the emergency room on 04/09/2016 showed subsegmental airspace disease in the right lower lobe,No effusion. He came to the office today because of worsening symptoms, cough, vomiting, chest x-ray was done it showed stable left lower lobe airspace opacity,There is a new right upper lobe air space disease consistent with pneumonia. Hospital Course Hospital Course: Patient was admitted directly from the office where he presented with pneumonia , he was treated outpatient for pneumonia but he failed outpatient treatment. He was treated with IV antibiotic with very good response. He has Parkinson's disease.with rigid tone and excessive tremors ,he has had may episodes of fall sometimes with fatal outcome,the plan is to transfer him to the [facility] for rehabilitation .He presently resides in [facility]. Physical Exam Vital Signs: Temp Pulse Resp BP Pulse Ox 97.5 F 60 16 134/89 H 98 04/25/16 15:30 04/25/16 15:30 04/25/16 15:30 04/25/16 15:30 04/25/16 15:30 Intake & Output 04/24/16 04/25/16 04/26/16 06:59 06:59 06:59 Intake Total 1320 1780 600 Output Total 1885 975 800 Balance -565 805 -200 General appearance: PRESENT: no acute distress Eye exam: PRESENT: PERRLA Respiratory exam: PRESENT: clear to auscultation cayetano Cardiovascular exam: PRESENT: +S1, +S2 GI/Abdominal exam: PRESENT: soft Neurological exam: PRESENT: alert, CN II-XII grossly intact Results Laboratory Results: 04/14/16 19:46 04/14/16 19:46 Impressions: Chest X-Ray 04/14/16 00:00 IMPRESSION: NEW RIGHT UPPER LOBE AIRSPACE DISEASE COMPATIBLE WITH PNEUMONIA Head CT 04/14/16 00:00 IMPRESSION: NO ACUTE INTRACRANIAL PROCESS. NO SIGNIFICANT CHANGE FROM PRIOR STUDY.
[2016-04-25] MEDS: TEMAZEPAM 15 MG CAPSULE PO PRN (21:09)
[2016-04-26] MEDS: LANSOPRAZOLE 30 MG TAB.RAP.DR PO SCH (06:35)
[2016-04-26] MEDS: ROPINIROLE HCL 1 MG TABLET PO SCH ×2 (08:03→12:12)
[2016-04-26] MEDS: FLUOXETINE HCL 20 MG CAPSULE PO SCH (10:42)
[2016-04-26] MEDS: CARBIDOPA/LEVODOPA ER 50-200 MG TABLET.SA PO SCH (12:12)
[2016-04-26 16:44] VITALS: BP 111/61
== END 2016-04-26 16:15 | DRG 194 ==
LOC: 4S 13:23
PROVIDERS: ADMIT Internal Medicine; ATTEND Internal Medicine
DX: J18.1 Lobar pneumonia, unspecified organism (principal); N39.0 Urinary tract infection, site not specified; G20 Parkinson's disease; I10 Essential (primary) hypertension; K21.9 Gastro-esophageal reflux disease without esophagitis; F32.9 Major depressive disorder, single episode, unspecified; E66.9 Obesity, unspecified; Z68.27 Body mass index [BMI] 27.0-27.9, adult; Z87.891 Personal history of nicotine dependence; Z79.899 Other long term (current) drug therapy
CPT/HCPCS: 36415; 70450; 71020; 80048; 80076; 81001; 82565; 85025; 85027; 85610; 85730; 87040; 87086; 93005; 93010; J0696; J1650; J1956; J3490

== ENCOUNTER 2016-05-10 08:17 | Emergency (ER) | payer MEDICARE ==
[2016-05-10] MEDS ORDERED: ACETAMINOPHEN 325 MG TABLET PO ONE (09:04)
[2016-05-10] MEDS ORDERED: DIPH/PERTUSS(ACELL)/TETANUS VAC/PF 0.5 ML SYR (>=10YO) IM ONE (09:07)
[2016-05-10] MEDS ORDERED: CARBIDOPA/LEVODOPA ER 50-200 MG TABLET.SA PO ONE ×2 (09:12→12:52)
--- NOTE | 2016-05-10 09:15 | ER Document Report ---
ED Fall - General Chief Complaint: Fall Injury Stated Complaint: FALL/HEAD INJURY Mode of Arrival: Medic Information source: Patient, Transfer Record Notes: Patient states that he was in the bathroom and slipped falling and hitting his head on the toilet. Patient complains only of nasal and facial pain. Patient denies any loss of consciousness, nausea, or vomiting. Patient denies any knee discomfort. Patient does have a history of Parkinson's as well as frequent falls. TRAVEL OUTSIDE OF THE [place] IN LAST 30 DAYS: No - HPI Occurred: Just prior to arrival Where: [facility] Context: Slipped Associated symptoms: None Location of injury/pain: Face. No: Upper extremity, Lower extremity Quality of pain: Achy Pain Level: 2 - Related data Allergies/Adverse Reactions: No Known Allergies Allergy (Unverified 01/14/16 07:45) Past Medical History - General Information source: Patient - Social History Smoking Status: Never Smoker Frequency of alcohol use: None Drug Abuse: None Lives with: [facility] Family History: Reviewed & Not Pertinent - Medical History Medical History: Other - Parkinson's - Past Medical History Cardiac Medical History: Reports: Hx Hypertension GI Medical History: Reports: Hx Gastroesophageal Reflux Disease Psychiatric Medical History: Reports: Hx Depression Past Surgical History: Reports: Other - electric stimulator - Immunizations Hx Diphtheria, Pertussis, Tetanus Vaccination: Yes Review of Systems - Review of Systems Constitutional: No symptoms reported. denies: Fever, Recent illness EENT: Nose pain, Nose congestion, Nose discharge - Epistaxis Cardiovascular: No symptoms reported. denies: Chest pain, Palpitations, Dizziness, Lightheaded Respiratory: Cough. denies: Short of breath Gastrointestinal: No symptoms reported. denies: Abdominal pain, Diarrhea, Nausea, Vomiting Genitourinary: No symptoms reported Male Genitourinary: No symptoms reported Musculoskeletal: denies: Back pain, Joint pain, Neck pain Skin: No symptoms reported Hematologic/Lymphatic: No symptoms reported Neurological/Psychological: No symptoms reported. denies: Lost consciousness, Headaches Physical Exam - Vital signs Vitals: Temp Pulse Resp BP Pulse Ox 97.7 F 58 L 20 123/79 100 05/10/16 08:25 05/10/16 08:25 05/10/16 08:25 05/10/16 08:25 05/10/16 08:25 - General General appearance: Appears well, Alert In distress: None - HEENT Head: Abrasions - Abrasions to forehead, Tenderness. No: Racoon's eyes Eyes: Normal Conjunctiva: Normal Extraocular movements intact: Yes Pupils: PERRL Ears: Normal External canal: Normal Tympanic membrane: Normal. No: Hemotympanum Nasal: Ecchymosis, Epistaxis - Dried blood to bilateral nostrils, Swelling. No : Septal hematoma Mouth/Lips: Normal Mucous membranes: Normal Neck: Normal, Supple. No: Lymphadenopathy - Respiratory Respiratory status: No respiratory distress Chest status: Nontender Breath sounds: Nonproductive cough, Rhonchi Chest palpation: Normal - Cardiovascular Rhythm: Regular Heart sounds: S1 appreciated, S2 appreciated Murmur: No - Abdominal Inspection: Normal Distension: No distension Bowel sounds: Normal Tenderness: Nontender Organomegaly: No organomegaly - Back Back: Normal, Nontender. No: CVA tenderness, Vertebra tenderness - Extremities General upper extremity: Normal inspection, Normal strength General lower extremity: Normal inspection, Normal strength Knee: Normal, Nontender. No: Tender, Deformity, Dislocation, Ecchymosis, Joint effusion, Pain with ROM - Neurological Cognition: Normal Ladonna Coma Scale Eye Opening: Spontaneous [place] Coma Scale Verbal: Oriented Ladonna Coma Scale Motor: Obeys Commands Ladonna Coma Scale Total: 15 - Skin Skin Temperature: Warm Skin Moisture: Dry Skin Color: Other - Abrasion to forehead Course - Re-evaluation Re-evalutation: 05/10/16 09:[address] Loving regarding patient's diagnostic evaluation, agrees with plan for CT imaging. 05/10/16 11:[address] Loving regarding patient's plan disposition. Patient is requesting something for pain, Dr. Loving recommends giving a dose of hydrocodone and having his primary doctor to address his pain medication needs at the care home. Recommends giving patient prescription of tramadol although patient has been on this medication in the past due to potential interactions with the other medications that patient is currently taking. Discussed concern about increased sedation, medication reaction and potential risks for increased falls. 05/10/16 12:59 Patient arouses easily to voice. Patient denies any complaints or needs at this time. Patient advised that he will need to follow-up with an ear nose and throat doctor regarding his nasal fracture and his primary doctor can address his pain management. Patient advised that the nurse would relay this information to the nursing staff at [facility] as well. - Vital Signs Vital signs: Temp Pulse Resp BP Pulse Ox 97.7 F 54 L 16 104/72 96 05/10/16 13:58 05/10/16 13:58 05/10/16 15:01 05/10/16 15:01 05/10/16 15:01 - Laboratory Result Diagrams: 05/10/16 10:04 05/10/16 10:04 Laboratory results interpreted by me: 05/10/16 05/10/16 05/10/16 10:04 10:04 12:07 RDW 14.3 H Plt Count 107 L Total Bilirubin 2.2 H Urine Blood SMALL H Labs- Entire Visit 05/10/16 05/10/16 05/10/16 10:04 10:04 12:07 WBC 5.4 RBC 4.40 Hgb 13.6 Hct 39.6 MCV 90 MCH 30.9 MCHC 34.3 RDW 14.3 H Plt Count 107 L Seg Neutrophils % 71.5 Lymphocytes % 15.9 Monocytes % 10.3 Eosinophils % 1.9 Basophils % 0.4 Absolute Neutrophils 3.8 Absolute Lymphocytes 0.9 Absolute Monocytes 0.6 Absolute Eosinophils 0.1 Absolute Basophils 0.0 Sodium 141.2 Potassium 4.6 Chloride 105 Carbon Dioxide 27 Anion Gap 9 BUN 13 Creatinine 0.87 Est GFR ( Amer) > 60 Est GFR (Non-Af Amer) > 60 Glucose 95 Calcium 9.3 Total Bilirubin 2.2 H Direct Bilirubin 0.0 AST 17 ALT 26 Alkaline Phosphatase 99 Total Protein 7.1 Albumin 3.7 Urine Color YELLOW Urine Appearance CLEAR Urine pH 7.0 Ur Specific Simpson 1.009 Urine Protein NEGATIVE Urine Glucose (UA) NEGATIVE Urine Ketones NEGATIVE Urine Blood SMALL H Urine Nitrite NEGATIVE Urine Bilirubin NEGATIVE Urine Urobilinogen NEGATIVE Ur Leukocyte Esterase NEGATIVE Urine WBC (Auto) 1 Urine RBC (Auto) 1 Squamous Epi Cells Auto <1 Urine Mucus (Auto) RARE Urine Ascorbic Acid NEGATIVE 05/10/16 12:59 - Diagnostic Test Radiology reviewed: Reports reviewed Discharge - Discharge Clinical Impression: Parkinson disease, Abrasion Fall Qualifiers: Encounter type: initial encounter Qualified Code(s): W19.XXXA - Unspecified fall, initial encounter Nasal fracture Qualifiers: Encounter type: initial encounter Fracture type: closed Qualified Code(s): S02.2XXA - Fracture of nasal bones, initial encounter for closed fracture Condition: Stable Disposition: HOME, SELF-CARE Instructions: Fracture ([facility]), Ice Packs ([facility]), Acetaminophen Additional Instructions: Return immediately for any new or worsening symptoms Followup with your primary care provider, call tomorrow to make a followup appointment Follow up with an learning facilitator for further management of your nasal fracture Do not blow your nose Referrals: DOM PEGUERO MD [Primary Care Provider] - Follow up tomorrow ENT [Provider Group] - Follow up as needed VJ KEYES MD [[facility]] - Follow up in 3-5 days
[2016-05-10 10:30] LABS: ABSOLUTE EOSINOPHILS # (AUTO) 0.1 10^3/uL (0.0-0.6); ABSOLUTE LYMPHOCYTES (AUTO) 0.9 10^3/uL (0.5-4.7); ABSOLUTE MONOCYTES (AUTO) 0.6 10^3/uL (0.1-1.4); ABSOLUTE NEUT (AUTO) 3.8 10^3/uL (1.7-8.2); BASOPHILS % (AUTO) 0.4 % (0-2); EOSINOPHILS % (AUTO) 1.9 % (0-6); HEMATOCRIT 39.6 % (37.9-51.0); HEMOGLOBIN 13.6 g/dL (13.5-17.0); HGB HCT DIFFERENCE 1.2; LYMPHOCYTES % (AUTO) 15.9 % (13-45); MEAN CORPUSCULAR HEMOGLOBIN 30.9 pg (27.0-33.4); MEAN CORPUSCULAR HGB CONC 34.3 g/dL (32.0-36.0); MEAN CORPUSCULAR VOLUME 90 fl (80-97); MONOCYTES % (AUTO) 10.3 % (3-13); RED CELL DISTRIBUTION WIDTH 14.3 % (11.5-14.0); SEGMENTED NEUTROPHILS % (AUTO) 71.5 % (42-78); WHITE BLOOD COUNT 5.4 10^3/uL (4.0-10.5)
[2016-05-10 10:50] LABS: ALANINE AMINOTRANSFERASE 26 U/L (21-72); ALBUMIN 3.7 g/dL (3.5-5.0); ALKALINE PHOSPHATASE 99 U/L (38-126); ANION GAP 9 (5-19); ASPARTATE AMINO TRANSFERASE 17 U/L (17-59); BILIRUBIN,TOTAL 2.2 mg/dL (0.2-1.3); BLOOD UREA NITROGEN 13 mg/dL (7-20); CALCIUM 9.3 mg/dL (8.4-10.2); CARBON DIOXIDE 27 mmol/L (22-30); CHLORIDE 105 mmol/L (98-107); CREATININE RESULT 0.87 mg/dL (0.52-1.25); GLUCOSE 95 mg/dL (75-110); POTASSIUM 4.6 mmol/L (3.6-5.0); SODIUM 141.2 mmol/L (137-145); TOTAL PROTEIN 7.1 g/dL (6.3-8.2)
[2016-05-10] MEDS ORDERED: HYDROCODONE/ACETAMINOPHEN 5-325 MG TABLET PO ONE (11:20)
[2016-05-10] MEDS ORDERED: LIDOCAINE 2% URO-JET 5 ML KIT MM ONE (12:04)
[2016-05-10 12:34] LABS: APPEARANCE,URINE CLEAR; BILIRUBIN,URINE NEGATIVE (NEGATIVE); GLUCOSE, URINE NEGATIVE (NEGATIVE); KETONES,URINE NEGATIVE (NEGATIVE); LEUKOCYTE ESTERASE,URINE NEGATIVE (NEGATIVE); NITRITE,URINE NEGATIVE (NEGATIVE); PROTEIN,URINE NEGATIVE (NEGATIVE); URINE SPECIFIC GRAVITY 1.009; UROBILINOGEN,URINE NEGATIVE mg/dL (<2.0)
[2016-05-10 16:01] VITALS: BP 124/78
--- NOTE | 2016-05-11 11:14 | EKG REPORT ---
SEVERITY:- ABNORMAL ECG - SINUS RHYTHM LEFT AXIS DEVIATION NONSPECIFIC T ABNORMALITIES, INFERIOR LEADS : Confirmed by: Yogesh Friedman 11-May-2016 11:13:08
== END 2016-05-10 13:58 | disposition home or self-care (01) ==
LOC: ER 08:17
DX: S02.2XXA Fracture of nasal bones, initial encounter for closed fracture (principal); S00.81XA Abrasion of other part of head, initial encounter; W01.198A Fall on same level from slipping, tripping and stumbling with subsequent striking against other object, initial encounter; Z91.81 History of falling; Y93.E8 Activity, other personal hygiene; Y92.121 Bathroom in nursing home as the place of occurrence of the external cause; R51 Headache; G20 Parkinson's disease; J34.89 Other specified disorders of nose and nasal sinuses; I10 Essential (primary) hypertension; R05 Cough
CPT/HCPCS: 93005; 99285; 90471; 36415; 87040; 87086; 87205; 85025; 80053; 81001; 71020; 70450; 70486; 72125; 90715; 93010; A9270 ×3; J3490

== ENCOUNTER → 2017-04-27 | Outpatient (CLI) | payer MEDICARE, MEDICAID ==
--- NOTE | 2017-04-27 15:51 | RADIOLOGY REPORT (SQ) ---
EXAM DESCRIPTION: CT SOFT TISSUE NECK WITH COMPLETED DATE/TIME: 04/27/2017 2:35 pm REASON FOR STUDY: PHARYNGEAL MASS (J39.2) J39.2 OTHER DISEASES OF PHARYNX COMPARISON: None. TECHNIQUE: Post IV contrasted scanning from skull base through lung apices with review of bone, soft tissue and lung windows. Reconstructed coronal and sagittal MPR images reviewed. All images stored on PACS. All CT scanners at this facility use dose modulation, iterative reconstruction, and/or weight based d osing when appropriate to reduce radiation dose to as low as reasonably achievable (ALARA). [facility]: Dose Right [facility]: CareDose [facility]: Dose Right [facility]: Teradose 4D [facility]: NeuroSky CONTRAST TYPE AND DOSE: contrast/concentration: Isovue 370.00 mg/ml; Total Contrast Delivered: 75.0 ml; Total Saline Delivered: 49.4 ml RENAL FUNCTION: Creatinine 1.1 RADIATION DOSE: . LIMITATIONS: None. FINDINGS: SKULL BASE: Intact. MAJOR SALIVARY GLANDS: No solid or cystic masses. No inflammatory changes. LYMPHADENOPATHY: No adenopathy. MUCOSAL MASSES OR ASYMMETRY: No mucosal masses or asymmetry. LARYNX/CORDS: No abnormal findings. VASCULAR STRUCTURES: The major vessels are patent. LUNG APICES: Clear. BONES: Old left nasal fractures. THYROID: Normal size. No masses. PARANASAL SINUSES: Clear. OTHER: Neurostimulator leads in the ventricles. Neurostimulator wires along the left side of the nec k. IMPRESSION: No mass identified. TECHNICAL DOCUMENTATION: JOB ID: [id number] Quality ID # [id number]: Final reports with documentation of one or more dose reduction techniques (e.g., Au tomated exposure control, adjustment of the mA and/or kV according to patient size, use of iterative reconstruction technique) 2010 [employer]- All Rights Reserved Reading location - IP/workstation name: [email or web address]
== END ==
LOC: RAD 13:52
PROVIDERS: ATTEND Otolaryngology
DX: J39.2 Other diseases of pharynx (principal)
CPT/HCPCS: 70491; 82565

== ENCOUNTER 2017-10-04 15:52 | Emergency (ER) | payer MEDICARE, MEDICAID ==
--- NOTE | 2017-10-04 18:32 | ER Document Report ---
ED General - General Mode of Arrival: Ambulatory Information source: Patient, [employer] TRAVEL OUTSIDE OF THE [place] IN LAST 30 DAYS: No - General Chief Complaint: Fall Stated Complaint: POSSIBLE SEIZURE Time Seen by Provider: 10/04/17 17:51 Notes: Patient is a 66-year-old male with dementia was sent to the emergency department from [facility] complaining of a fall.. According to information obtained from nursing staff at [facility], patient fell from his wheelchair and proceeded to have an exaggerated Parkinson's episode and began to complain of back pain. Patient at bedside states he feels fine and does not complain of any pain. (JAIME MCGRAW) - Related Data Allergies/Adverse Reactions: No Known Allergies Allergy (Unverified 01/14/16 07:45) Past Medical History - General Information source: Patient - Social History Smoking Status: Former Smoker Chew tobacco use (# tins/day): No Frequency of alcohol use: None Drug Abuse: None Family History: Reviewed & Not Pertinent Patient has suicidal ideation: No Patient has homicidal ideation: No - Past Medical History Cardiac Medical History: Reports: Hx Hypertension GI Medical History: Reports: Hx Gastroesophageal Reflux Disease Psychiatric Medical History: Reports: Hx Depression Past Surgical History: Reports: Hx Neurologic Surgery - brain stimulator, Other - electric stimulator - Immunizations Hx Diphtheria, Pertussis, Tetanus Vaccination: Yes Review of Systems - Review of Systems Constitutional: No symptoms reported EENT: No symptoms reported Cardiovascular: No symptoms reported Respiratory: No symptoms reported Gastrointestinal: No symptoms reported Genitourinary: No symptoms reported Male Genitourinary: No symptoms reported Musculoskeletal: See HPI, Back pain Skin: No symptoms reported Hematologic/Lymphatic: No symptoms reported Neurological/Psychological: No symptoms reported -: Yes All other systems reviewed and negative Physical Exam - Vital signs Vitals: Temp Pulse Resp BP Pulse Ox 98.0 F 73 15 102/60 100 10/04/17 20:21 10/04/17 20:21 10/04/17 20:21 10/04/17 20:21 10/04/17 20:21 - Notes Notes: GENERAL: Alert, interacts well. No acute distress. HEAD: Normocephalic, atraumatic. EYES: Pupils equal, round, and reactive to light. Extraocular movements intact. ENT: Oral mucosa moist, tongue midline. NECK: Full range of motion. Supple. Trachea midline. LUNGS: Coarse breath sounds. No respiratory distress. HEART: Regular rate and rhythm. No murmurs, gallops, or rubs. EXTREMITIES: Moves all 4 extremities spontaneously. 5/5 motor strength. No edema , radial and dorsalis pedis pulses 2/4 bilaterally. No cyanosis. NEUROLOGICAL: Alert and oriented x3. Normal speech. PSYCH: Normal affect, normal mood. SKIN: Warm, dry, normal turgor. No rashes or lesions noted. BACK: No tenderness to palpation or percussion. (JAIME MCGRAW) Course - Re-evaluation Re-evalutation: 10/04/17 19:23 CT shows no acute findings. Patient with history of Parkinson's and dementia fell from his wheelchair and when he was lifted back there was concerns of exaggerated parkinsonian movement. He has been observed in the emergency acute distress with normal head CT will be discharged back to nursing facility. (ABAD DE OLIVEIRA) - Vital Signs Vital signs: Temp Pulse Resp BP Pulse Ox 98.0 F 73 15 102/60 100 10/04/17 20:21 10/04/17 20:21 10/04/17 20:21 10/04/17 20:21 10/04/17 20:21 Discharge - Discharge Clinical Impression: Fall from chair Qualifiers: Encounter type: initial encounter Qualified Code(s): W07.XXXA - Fall from chair , initial encounter Condition: Good Disposition: OTHER Referrals: DINESH SHIN MD [Primary Care Provider] - Follow up as needed Scribe Attestation: 10/05/17 13:26 I personally performed the services described in the documentation, reviewed and edited the documentation which was dictated to the scribe in my presence, and it accurately records my words and actions. (ABAD DE OLIVEIRA) Scribe Documentation - Scribe Written by Melissa:: Melissa Lindsay, 10/04/2017 18:43 acting as scribe for :: Cleve
--- NOTE | 2017-10-04 18:53 | RADIOLOGY REPORT (SQ) ---
EXAM DESCRIPTION: CT HEAD WITHOUT COMPLETED DATE/TIME: 10/04/2017 6:35 pm REASON FOR STUDY: fall COMPARISON: 05/10/2016 TECHNIQUE: Axial images acquired through the brain without intravenous contrast. Images reviewed wi th bone, brain and subdural windows. Additional sagittal and coronal reconstructions were generated. Images stored on PACS. All CT scanners at this facility use dose modulation, iterative reconstruction, and/or weight based d osing when appropriate to reduce radiation dose to as low as reasonably achievable (ALARA). [facility]: Dose Right [facility]: CareDose [facility]: Dose Right [facility]: Teradose 4D [facility]: [employer] RADIATION DOSE: CT Rad equipment meets quality standard of care and radiation dose reduction techniq ues were employed. CTDIvol: 55.2 mGy. DLP: 1112 mGy-cm. mGy. LIMITATIONS: None. FINDINGS: VENTRICLES: Prominent. CEREBRUM: Mild cortical atrophy. No masses. No hemorrhage. No midline shift. No evidence for acut e infarction. Few scattered areas of low density in the white matter most likely chronic small vessel ischemic changes. CEREBELLUM: No masses. No hemorrhage. No alteration of density. No evidence for acute infarction. EXTRAAXIAL SPACES: No fluid collections. No masses. ORBITS AND GLOBE: No intra- or extraconal masses. Normal contour of globe without masses. CALVARIUM: No fracture. PARANASAL SINUSES: No fluid or mucosal thickening. SOFT TISSUES: No mass or hematoma. OTHER: Bilateral ventriculoperitoneal shunts are present. IMPRESSION: CHRONIC MICROVASCULAR ISCHEMIA. NO ACUTE IMAGING FINDINGS IN THE BRAIN. EVIDENCE OF ACUTE STROKE: NO. COMMENT: Quality ID # [id number]: Final reports with documentation of one or more dose reduction techniques (e.g., Automated exposure control, adjustment of the mA and/or kV according to patient size, use of iterative reconstruction technique) TECHNICAL DOCUMENTATION: JOB ID: [id number] [employer]- All Rights Reserved Reading location - IP/workstation name: [email or web address]
[2017-10-04 20:23] VITALS: BP 102/60
== END 2017-10-04 20:21 | disposition other institution (70) ==
LOC: ER 15:52
DX: M54.9 Dorsalgia, unspecified (principal); R56.9 Unspecified convulsions; G20 Parkinson's disease; F02.80 Dementia in other diseases classified elsewhere, unspecified severity, without behavioral disturbance, psychotic disturbance, mood disturbance, and anxiety; W05.0XXA Fall from non-moving wheelchair, initial encounter; Z87.891 Personal history of nicotine dependence; I10 Essential (primary) hypertension
CPT/HCPCS: 70450; 99285

== ENCOUNTER 2017-10-19 14:38 | Emergency (ER) | payer MEDICARE, MEDICAID ==
[2017-10-19] MEDS ORDERED: ACETAMINOPHEN 325 MG TABLET PO ONE (14:56)
--- NOTE | 2017-10-19 15:01 | ER Document Report ---
HPI - HPI Pain Level: Denies Notes: Patient is a 66-year-old male with a history of dementia and occasional falls who presents to the ED complaining of a fall when he was stepping into his wheelchair today, got his foot caught, and hit his forehead off of the wheelchair. Patient states that he does have a slight headache as well as some neck pain and low back pain. This was a witnessed fall. He did not lose consciousness. He has not had any nausea or vomiting. Patient states that aside from the discomfort he feels well. He has been eating and drinking without any difficulties. He has been urinating normally and having normal bowel movements. Denies any drug allergies or alcohol involvement. No other concerns or complaints. He is not on any blood thinners. Denies any fever, changes in vision/speech/mentation/hearing, URI, sore throat, chest pain, palpitations, syncope, cough, shortness of breath, wheeze, dyspnea, abdominal pain, nausea/vomiting/diarrhea, urinary retention, dysuria, hematuria, loss of control of bowel or bladder, numbness/tingling, saddle anesthesia, muscle paralysis/weakness, or rash. - ROS Systems Reviewed and Negative: Yes All other systems reviewed and negative Past Medical History - Social History Smoking Status: Never Smoker Family History: Reviewed & Not Pertinent - Past Medical History Cardiac Medical History: Reports: Hx Hypertension Renal/ Medical History: Denies: Hx Peritoneal Dialysis GI Medical History: Reports: Hx Gastroesophageal Reflux Disease Psychiatric Medical History: Reports: Hx Depression Past Surgical History: Reports: Hx Neurologic Surgery - brain stimulator, Other - electric stimulator - Immunizations Hx Diphtheria, Pertussis, Tetanus Vaccination: Yes Vertical Provider Document - CONSTITUTIONAL Agree With Documented VS: Yes Notes: PHYSICAL EXAMINATION: GENERAL: Well-appearing, well-nourished and in no acute distress. A&Ox4. Answers questions appropriately. HEAD: + abrasion to the forehead with mild swelling, no bogginess/hematoma/step- offs. No hedrick sign. EYES: Pupils equal round and reactive to light, extraocular movements intact, sclera anicteric, conjunctiva are normal. No raccoon eyes/entrapment. no nystagmus. ENT: EAC clear b/l. TM's intact b/l without erythema, fluid, or perforation. Nares patent and without discharge. oropharynx clear without exudates. No tonsilar hypertrophy or erythema. Moist mucous membranes. No sinus tenderness. No hemotympanum/CSF discharge. NECK: Normal range of motion, supple without lymphadenopathy. No rigidity. + mild midline tenderness. Chest: No flail chest. equal rise/fall. Non-tender LUNGS: Breath sounds clear to auscultation bilaterally and equal. No wheezes rales or rhonchi. HEART: Regular rate and rhythm without murmurs, rubs, gallops. ABDOMEN: Soft, nontender, nondistended abdomen. No guarding, no rebound. No masses appreciated. Normal bowel sounds present. No CVA tenderness bilaterally. Musculoskeletal: Ext b/l: FROM to passive/active. Strength 5+/5. No deficits noted. No bony tenderness of extremities. Back: FROM to passive/active. Strength 5+/5. No stepoffs or deformities. + mild tenderness to midline/paraspinal mm near L3-4. No other bony tenderness or ecchymosis. SLR negative b/l. Extremities: No cyanosis, clubbing, or edema b/l. Peripheral pulses 2+. Capillary refill less than 2 seconds. NEUROLOGICAL: NIH 0. GCS 15. Cranial nerves grossly intact. Normal speech, normal gait. Normal sensory, motor exams. Reflexes 2+ b/l. MIKAELA's negative. Pronator drift negative. Heel/byrd, finger/nose wnl. PSYCH: Normal mood, normal affect. SKIN: see above. Warm, Dry, normal turgor, no rashes or lesions noted. - INFECTION CONTROL TRAVEL OUTSIDE OF THE [place] IN LAST 30 DAYS: No Course - Re-evaluation Re-evalutation: 10/19/17 15:54 Patient is an afebrile, well-hydrated, 66-year-old male who presents to the ED with a head injury s/p fall. Vitals are acceptable without significant tachycardia, tachypnea, or hypoxia. PE is otherwise unremarkable for any focal neurological deficits. NIH 0, GCS 15, cranial nerves grossly intact. CT scan of the head and cervical spine were unremarkable for any acute pathology. L- spine x-ray was also unremarkable for any acute pathology. The abrasion on his forehead was thoroughly irrigated and cleansed and Steri-Strips were placed. Tylenol was given p.o. Patient is nontoxic-appearing and is tolerating p.o. without difficulties. No other labs or imaging warranted at this time based on H&P. Patient is able to ambulate without assistance at this time. Low suspicion for any acute glaucoma, temporal arteritis, meningitis, intracranial hemorrhage, ischemic stroke, fracture, expanding/ruptured AAA, cauda equina syndrome, epidural mass lesion/abscess, herniated disc causing severe spinal stenosis, or other systemic infection at this time. Patient is aware that his condition can change from initial presentation and that he needs monitor symptoms closely for any acute changes. Conservative measures for symptoms otherwise. Recheck with your PCM in 2-3 days. Return to the ED with any worsening/was otherwise as reviewed in discharge. Patient is in agreement. Discharge - Discharge Clinical Impression: Head injury Qualifiers: Encounter type: initial encounter Qualified Code(s): S09.90XA - Unspecified injury of head, initial encounter Condition: Stable Disposition: HOME, SELF-CARE Instructions: Headache ([facility]), Head Injury Precautions ([facility]) Additional Instructions: Rest, Ice/cool compress as needed Tylenol/ibuprofen as needed Light stretches daily Strength exercises as able Moist heat and massage may help F/u with your PCP in 2-3 days for a recheck Consider consult(s) with Orthopedics/physical therapy for ongoing/worsening symptoms Return to the ED with any worsening symptoms and/or development of fever, headache, changes in behavior/mentation/vision/speech, chest pain, palpitations , syncope, shortness of breath, trouble breathing, abdominal pain, n/v/d, blood in stool/urine, loss of control of bowel/bladder, urinary retention, muscle weakness/paralysis, saddle anesthesia, numbness/tingling, or other worsening symptoms that are concerning to you. Referrals: [facility]) [Provider Group] - Follow up as needed DINESH SHIN MD [Primary Care Provider] - 10/22/17
--- NOTE | 2017-10-19 15:29 | RADIOLOGY REPORT (SQ) ---
EXAM DESCRIPTION: CT HEAD WITHOUT COMPLETED DATE/TIME: 10/19/2017 3:13 pm REASON FOR STUDY: pain s/p fall, head injury COMPARISON: 10/04/2017 TECHNIQUE: Axial images acquired through the brain without intravenous contrast. Images reviewed wi th bone, brain and subdural windows. Images stored on PACS. All CT scanners at this facility use dose modulation, iterative reconstruction, and/or weight based d osing when appropriate to reduce radiation dose to as low as reasonably achievable (ALARA). [facility]: Dose Right [facility]: CareDose [facility]: Dose Right [facility]: Teradose 4D [facility]: [employer] RADIATION DOSE: CT Rad equipment meets quality standard of care and radiation dose reduction techniq ues were employed. CTDIvol: 53.2 mGy. DLP: 1150 mGy-cm.mGy. LIMITATIONS: None. FINDINGS: VENTRICLES: Stable. Bilateral shunt catheters without significant change. CEREBRUM: No masses. No hemorrhage. No midline shift. Areas of low density in the white matter mos t likely due to chronic micro-vascular ischemic change. No evidence for acute infarction. CEREBELLUM: No masses. No hemorrhage. No alteration of density. No evidence for acute infarction. EXTRAAXIAL SPACES: Age-related involutional change. No fluid collections. No masses. ORBITS AND GLOBE: No intra- or extraconal masses. Normal contour of globe without masses. CALVARIUM: No acute findings. PARANASAL SINUSES: No fluid or mucosal thickening. SOFT TISSUES: No mass or hematoma. OTHER: No other significant finding. IMPRESSION: CHRONIC CHANGES OF ATROPHY AND MICROVASCULAR ISCHEMIA. NO ACUTE PROCESS. EVIDENCE OF ACUTE STROKE: NO. TECHNICAL DOCUMENTATION: JOB ID: [id number] Quality ID # [id number]: Final reports with documentation of one or more dose reduction techniques (e.g., Au tomated exposure control, adjustment of the mA and/or kV according to patient size, use of iterative reconstruction technique) 2010 [employer]- All Rights Reserved Reading location - IP/workstation name: [email or web address]
--- NOTE | 2017-10-19 15:33 | RADIOLOGY REPORT (SQ) ---
EXAM DESCRIPTION: CT CERVICAL SPINE WITHOUT COMPLETED DATE/TIME: 10/19/2017 3:13 pm REASON FOR STUDY: pain s/p fall COMPARISON: None. TECHNIQUE: Axial images acquired through the cervical spine without intravenous contrast. Images re viewed with lung, soft tissue and bone windows. Reconstructed coronal and sagittal MPR images review ed. Images stored on PACS. All CT scanners at this facility use dose modulation, iterative reconstruction, and/or weight based d osing when appropriate to reduce radiation dose to as low as reasonably achievable (ALARA). [facility]: Dose Right [facility]: CareDose [facility]: Dose Right [facility]: Teradose 4D [facility]: [employer] RADIATION DOSE: CT Rad equipment meets quality standard of care and radiation dose reduction techniq ues were employed. CTDIvol: 24.2 mGy. DLP: 537 mGy-cm. mGy. LIMITATIONS: None. FINDINGS: ALIGNMENT: Anatomic. MINERALIZATION: Normal. VERTEBRAL BODIES: No fractures or dislocation. DISCS: Multilevel disc space narrowing with osteophytes. FACETS, LATERAL MASSES, POSTERIOR ELEMENTS: Facet arthropathy. No fractures. No dislocation. No ac [place] findings. HARDWARE: None in the spine. VISUALIZED RIBS: No fractures. LUNG APICES AND SOFT TISSUES: No significant or acute findings. OTHER: No other significant finding. IMPRESSION: CHRONIC DEGENERATIVE CHANGES. NO ACUTE FINDINGS. TECHNICAL DOCUMENTATION: JOB ID: [id number] Quality ID # [id number]: Final reports with documentation of one or more dose reduction techniques (e.g., Au tomated exposure control, adjustment of the mA and/or kV according to patient size, use of iterative reconstruction technique) 2010 [employer]- All Rights Reserved Reading location - IP/workstation name: [email or web address]
--- NOTE | 2017-10-19 15:38 | RADIOLOGY REPORT (SQ) ---
EXAM DESCRIPTION: L SPINE WHOLE COMPLETED DATE/TIME: 10/19/2017 3:27 pm REASON FOR STUDY: pain s/p fall COMPARISON: None. NUMBER OF VIEWS: Five views including obliques. TECHNIQUE: AP, lateral, oblique, and sacral radiographic images acquired of the lumbar spine. LIMITATIONS: None. FINDINGS: MINERALIZATION: Normal. SEGMENTATION: Normal. No transitional anatomy. ALIGNMENT: Mild levoscoliosis. Grade 1 anterolisthesis of L4 on L5. VERTEBRAE: Maintained height. No fracture or worrisome bone lesion. DISCS: Disc spaces are narrowed at L4-5 and L5-S1. Marginal osteophytes are present. POSTERIOR ELEMENTS: Hypertrophic facet changes from L3-S1. HARDWARE: None in the spine. PARASPINAL SOFT TISSUES: Normal. PELVIS: Intact as visualized. No fractures or worrisome bone lesions. SI joints intact. OTHER: No other significant finding. IMPRESSION: Mild scoliosis. Degenerative disc disease, spondylosis, and facet arthropathy. TECHNICAL DOCUMENTATION: JOB ID: [id number] [employer]- All Rights Reserved Reading location - IP/workstation name: [email or web address]
[2017-10-19 16:43] VITALS: BP 108/74
== END 2017-10-19 16:48 | disposition home or self-care (01) ==
LOC: ER 14:38
DX: S00.81XA Abrasion of other part of head, initial encounter (principal); R51 Headache; M54.2 Cervicalgia; M54.5 Low back pain; W18.39XA Other fall on same level, initial encounter; W22.8XXA Striking against or struck by other objects, initial encounter; Y93.89 Activity, other specified; I10 Essential (primary) hypertension
CPT/HCPCS: 99284; 72110; 70450; 72125; A9270

== ENCOUNTER 2017-10-20 11:12 | Emergency (ER) | payer MEDICARE, MEDICAID ==
--- NOTE | 2017-10-20 12:13 | RADIOLOGY REPORT (SQ) ---
EXAM DESCRIPTION: CT HEAD WITHOUT COMPLETED DATE/TIME: 10/20/2017 12:01 pm REASON FOR STUDY: fall COMPARISON: 10/19/2017. TECHNIQUE: Axial images acquired through the brain without intravenous contrast. Images reviewed wi th bone, brain and subdural windows. Additional sagittal and coronal reconstructions were generated. Images stored on PACS. All CT scanners at this facility use dose modulation, iterative reconstruction, and/or weight based d osing when appropriate to reduce radiation dose to as low as reasonably achievable (ALARA). [facility]: Dose Right [facility]: CareDose [facility]: Dose Right [facility]: Teradose 4D [facility]: [employer] RADIATION DOSE: CT Rad equipment meets quality standard of care and radiation dose reduction techniq ues were employed. CTDIvol: 53.2 mGy. DLP: 1097 mGy-cm.mGy. LIMITATIONS: None. FINDINGS: VENTRICLES: Prominent. CEREBRUM: No masses. No hemorrhage. No midline shift. Areas of low density in the white matter mos t likely due to chronic micro-vascular ischemic change. No evidence for acute infarction. CEREBELLUM: No masses. No hemorrhage. No alteration of density. No evidence for acute infarction. EXTRAAXIAL SPACES: Age-related involutional change. No fluid collections. No masses. ORBITS AND GLOBE: No intra- or extraconal masses. Normal contour of globe without masses. CALVARIUM: No fracture. PARANASAL SINUSES: No fluid or mucosal thickening. SOFT TISSUES: No mass or hematoma. OTHER: Stable bilateral electrodes. No other significant finding. IMPRESSION: CHRONIC CHANGES OF ATROPHY AND MICROVASCULAR ISCHEMIA. NO ACUTE PROCESS. EVIDENCE OF ACUTE STROKE: NO. TECHNICAL DOCUMENTATION: JOB ID: [id number] Quality ID # [id number]: Final reports with documentation of one or more dose reduction techniques (e.g., Au tomated exposure control, adjustment of the mA and/or kV according to patient size, use of iterative reconstruction technique) 2010 [employer]- All Rights Reserved Reading location - IP/workstation name: [email or web address]
--- NOTE | 2017-10-20 12:49 | ER Document Report ---
ED General - General Chief Complaint: Fall Stated Complaint: FALL/BODY PAIN Time Seen by Provider: 10/20/17 11:20 TRAVEL OUTSIDE OF THE [place] IN LAST 30 DAYS: No - HPI Patient complains to provider of: Head injury Notes: Patient is coming today after a fall at assisted living facility. Patient states he was in a wheelchair try to pick something up fell out of the wheelchair hitting his head. According to friend at bedside patient is supposed to remain wheelchair 18/09 however does try to stand and does fall often. Patient was recently seen after fall and laceration to the top of the forehead that was closed Steri-Strips. Laceration still closed no signs of infection. Patient denies any pain at this time. - Related Data Allergies/Adverse Reactions: No Known Allergies Allergy (Unverified 01/14/16 07:45) Past Medical History - Social History Smoking Status: Never Smoker Chew tobacco use (# tins/day): No Frequency of alcohol use: None Drug Abuse: None Family History: Reviewed & Not Pertinent Patient has suicidal ideation: No Patient has homicidal ideation: No - Past Medical History Cardiac Medical History: Reports: Hx Hypertension Renal/ Medical History: Denies: Hx Peritoneal Dialysis GI Medical History: Reports: Hx Gastroesophageal Reflux Disease Psychiatric Medical History: Reports: Hx Depression Past Surgical History: Reports: Hx Neurologic Surgery - brain stimulator, Other - electric stimulator - Immunizations Hx Diphtheria, Pertussis, Tetanus Vaccination: Yes Review of Systems - Review of Systems Constitutional: No symptoms reported EENT: No symptoms reported Cardiovascular: No symptoms reported Respiratory: No symptoms reported Gastrointestinal: No symptoms reported Genitourinary: No symptoms reported Male Genitourinary: No symptoms reported Musculoskeletal: No symptoms reported Skin: No symptoms reported Hematologic/Lymphatic: No symptoms reported Neurological/Psychological: Other - Head injury Physical Exam - Vital signs Vitals: Temp Pulse Resp BP Pulse Ox 98 F 60 16 135/95 H 100 10/20/17 11:21 10/20/17 11:21 10/20/17 11:21 10/20/17 11:21 10/20/17 11:21 Interpretation: Normal - General General appearance: Appears well, Alert - HEENT Head: Normocephalic. No: Atraumatic - Abrasion above the left orbit along with a Steri-Strip wound to the top of forehead. Eyes: Normal Conjunctiva: Normal Cornea: Normal Pupils: PERRL - Respiratory Respiratory status: No respiratory distress Chest status: Nontender Breath sounds: Normal Chest palpation: Normal - Cardiovascular Rhythm: Regular Heart sounds: Normal auscultation Murmur: No - Abdominal Inspection: Normal Distension: No distension Bowel sounds: Normal Tenderness: Nontender Organomegaly: No organomegaly - Back Back: Normal, Nontender - Extremities General upper extremity: Normal inspection, Nontender, Normal color, Normal ROM , Normal temperature General lower extremity: Normal inspection, Nontender, Normal color, Normal ROM , Normal temperature, Normal weight bearing. No: Lynette's sign - Neurological Neuro grossly intact: Yes Cognition: Normal Orientation: AAOx4 [place] Coma Scale Eye Opening: Spontaneous [place] Coma Scale Verbal: Oriented [place] Coma Scale Motor: Obeys Commands [place] Coma Scale Total: 15 Speech: Normal Motor strength normal: LUE, RUE, LLE, RLE Sensory: Normal - Psychological Associated symptoms: Normal affect, Normal mood - Skin Skin Temperature: Warm Skin Moisture: Dry Skin Color: Normal Course - Re-evaluation Re-evalutation: 10/20/17 12:[address] is negative tolerating p.o. here. Patient will be discharged back to care facility. - Vital Signs Vital signs: Temp Pulse Resp BP Pulse Ox 98 F 60 16 135/95 H 100 10/20/17 11:21 10/20/17 11:21 10/20/17 11:21 10/20/17 11:21 10/20/17 11:21 Discharge - Discharge Clinical Impression: Head injury Qualifiers: Encounter type: initial encounter Qualified Code(s): S09.90XA - Unspecified injury of head, initial encounter Condition: Good Disposition: HOME, SELF-CARE Instructions: Head Injury Precautions ([facility]) Additional Instructions: Patient was evaluated after a fall. Please make sure the patient has amatory cyst device is really available. Please make sure the patient has a safe environment to move around. Please make sure the patient follows up with her primary care physician. Patient does have an abrasion above the left orbit recommend placing triple antibiotic ointment to this abrasion. Return to the ER for any other concerns. Patient had CT today does not show any acute pathology. Referrals: DINESH HSIN MD [Primary Care Provider] - Follow up as needed
[2017-10-20 12:56] VITALS: BP 136/87
== END 2017-10-20 12:54 | disposition home or self-care (01) ==
LOC: ER 11:12
DX: S09.90XA Unspecified injury of head, initial encounter (principal); W05.0XXA Fall from non-moving wheelchair, initial encounter; I10 Essential (primary) hypertension
CPT/HCPCS: 70450; 99283

== ENCOUNTER 2017-11-02 12:48 | Emergency (ER) | payer MEDICARE, MEDICAID ==
--- NOTE | 2017-11-02 14:29 | ER Document Report ---
ED Medical Screen (RME) <JEYSON LUNADarnell Delgado - Last Filed: 11/02/17 17:17> - General Mode of Arrival: Medic Information source: Patient, Emergency Med Personnel, [facility] Records TRAVEL OUTSIDE OF THE [place] IN LAST 30 DAYS: No - HPI Onset: Just prior to arrival Quality of pain: Achy Severity: Mild Associated Symptoms: Headache Exacerbated by: Denies Relieved by: Denies Similar symptoms previously: Yes Recently seen / treated by doctor: Yes <ALICE BOO - Last Filed: 11/02/17 20:22> - General Chief Complaint: Fall Injury Stated Complaint: FALL/FACIAL LACERATION Time Seen by Provider: 11/02/17 13:03 Notes: 67-year-old male presents via EMS from [facility] after a fall out of his bed. EMS reports that the patient was found conscious. Patient denying any pain. This is the patient's fourth visit and a month for falls. Patient found to have a blood pressure of 87/59. This was repeated and again patient is hypotensive. He states that he has been having issues with low blood pressure but upon chart review I do not see any systolic blood pressures less than 98. I have greeted and performed a rapid initial assessment of this patient. A comprehensive ED assessment and evaluation of the patient, analysis of test results and completion of medical decision making process we will be contacted by additional ED providers. HEENT: Superficial laceration to the forehead Respiratory: Coarse breath sounds bilaterally Neuro: Alert and oriented 3 (ALICE BOO) - Related Data Allergies/Adverse Reactions: No Known Allergies Allergy (Unverified 01/14/16 07:45) Past Medical History - Social History Chew tobacco use (# tins/day): No Frequency of alcohol use: None Drug Abuse: None - Past Medical History Cardiac Medical History: Reports: Hx Hypertension Renal/ Medical History: Denies: Hx Peritoneal Dialysis GI Medical History: Reports: Hx Gastroesophageal Reflux Disease Psychiatric Medical History: Reports: Hx Depression Past Surgical History: Reports: Hx Neurologic Surgery - brain stimulator, Other - electric stimulator - Immunizations Hx Diphtheria, Pertussis, Tetanus Vaccination: Yes <ALICE BOO - Last Filed: 11/02/17 20:22> - Vital signs Vitals: BP 98/60 L 11/02/17 14:24 Course - Laboratory Result Diagrams: 11/02/17 14:49 11/02/17 14:49 <JOSE ANGEL LUNA - Last Filed: 11/02/17 17:17> - Laboratory Result Diagrams: 11/02/17 14:49 11/02/17 14:49 <ALICE BOO - Last Filed: 11/02/17 20:22> - Vital Signs Vital signs: Temp Pulse Resp BP Pulse Ox 13 138/83 H 99 11/02/17 16:01 11/02/17 16:01 11/02/17 16:00 - Laboratory Laboratory results interpreted by me: 11/02/17 11/02/17 14:49 16:45 Hgb 13.4 L RDW 14.5 H Urine Ketones TRACE H Urine Urobilinogen 2.0 H Doctor's Discharge <JOSE ANGEL LUNA - Last Filed: 11/02/17 17:17> <ALICE BOO - Last Filed: 11/02/17 20:22> - Discharge Clinical Impression: Closed head injury Qualifiers: Encounter type: initial encounter Qualified Code(s): S09.90XA - Unspecified injury of head, initial encounter Fall Qualifiers: Encounter type: initial encounter Qualified Code(s): W19.XXXA - Unspecified fall, initial encounter Condition: Stable Disposition: HOME-SNF (ED ONLY) Additional Instructions: Please return to the emergency department if you have any worsening, or concern of your symptoms. Please return to the emergency department if you develop chest pain, difficulty breathing, severe abdominal pain, or ongoing vomiting. Please follow-up with your primary care physician in 2-3 days and any other recommended physicians. If prescribed, take all medications as directed. If you have any questions or concerns do not hesitate to return the emergency department for evaluation. Referrals: DINESH SHIN MD [Primary Care Provider] - Follow up as needed
[2017-11-02] MEDS ORDERED: NORMAL SALINE 500 ML IV ONE (14:30)
[2017-11-02 15:07] LABS: ABSOLUTE EOSINOPHILS # (AUTO) 0.1 10^3/uL (0.0-0.6); ABSOLUTE LYMPHOCYTES (AUTO) 0.8 10^3/uL (0.5-4.7); ABSOLUTE MONOCYTES (AUTO) 0.6 10^3/uL (0.1-1.4); ABSOLUTE NEUT (AUTO) 4.4 10^3/uL (1.7-8.2); BASOPHILS % (AUTO) 0.6 % (0-2); EOSINOPHILS % (AUTO) 2.3 % (0-6); HEMATOCRIT 38.6 % (37.9-51.0); HEMOGLOBIN 13.4 g/dL (13.5-17.0); LYMPHOCYTES % (AUTO) 13.7 % (13-45); MEAN CORPUSCULAR HEMOGLOBIN 30.7 pg (27.0-33.4); MEAN CORPUSCULAR HGB CONC 34.6 g/dL (32.0-36.0); MEAN CORPUSCULAR VOLUME 89 fl (80-97); MONOCYTES % (AUTO) 9.4 % (3-13); PLATELET COUNT 175 10^3/uL (150-450); RED BLOOD COUNT 4.35 10^6/uL (4.35-5.55); RED CELL DISTRIBUTION WIDTH 14.5 % (11.5-14.0); TOTAL CELLS COUNTED % (AUTO) 100 %
--- NOTE | 2017-11-02 15:14 | RADIOLOGY REPORT (SQ) ---
EXAM DESCRIPTION: CT HEAD WITHOUT COMPLETED DATE/TIME: 11/02/2017 3:01 pm REASON FOR STUDY: fall COMPARISON: 10/20/2017 TECHNIQUE: Axial images acquired through the brain without intravenous contrast. Images reviewed wi th bone, brain and subdural windows. Additional sagittal and coronal reconstructions were generated. Images stored on PACS. All CT scanners at this facility use dose modulation, iterative reconstruction, and/or weight based d osing when appropriate to reduce radiation dose to as low as reasonably achievable (ALARA). [facility]: Dose Right [facility]: CareDose [facility]: Dose Right [facility]: Teradose 4D [facility]: [employer] RADIATION DOSE: CT Rad equipment meets quality standard of care and radiation dose reduction techniq ues were employed. CTDIvol: 53.2 mGy. DLP: 1097 mGy-cm.mGy. LIMITATIONS: None. FINDINGS: VENTRICLES: Prominent. CEREBRUM: No masses. No hemorrhage. No midline shift. Areas of low density in the white matter mos t likely due to chronic micro-vascular ischemic change. No evidence for acute infarction. CEREBELLUM: No masses. No hemorrhage. No alteration of density. No evidence for acute infarction. EXTRAAXIAL SPACES: Age-related involutional change. No fluid collections. No masses. ORBITS AND GLOBE: No intra- or extraconal masses. Normal contour of globe without masses. CALVARIUM: No fracture. PARANASAL SINUSES: No fluid or mucosal thickening. SOFT TISSUES: No mass or hematoma. OTHER: Previously described bilateral electrodes remain stable. IMPRESSION: CHRONIC CHANGES OF ATROPHY AND MICROVASCULAR ISCHEMIA. NO ACUTE PROCESS. EVIDENCE OF ACUTE STROKE: NO. TECHNICAL DOCUMENTATION: JOB ID: [id number] Quality ID # [id number]: Final reports with documentation of one or more dose reduction techniques (e.g., Au tomated exposure control, adjustment of the mA and/or kV according to patient size, use of iterative reconstruction technique) 2010 [employer]- All Rights Reserved Reading location - IP/workstation name: [email or web address]
[2017-11-02 15:28] LABS: ANION GAP 11 (5-19); BLOOD UREA NITROGEN 12 mg/dL (7-20); CALCIUM 9.2 mg/dL (8.4-10.2); CARBON DIOXIDE 27 mmol/L (22-30); CHLORIDE 105 mmol/L (98-107); GLUCOSE 96 mg/dL (75-110); POTASSIUM 4.2 mmol/L (3.6-5.0); SODIUM 142.6 mmol/L (137-145)
--- NOTE | 2017-11-02 15:44 | RADIOLOGY REPORT (SQ) ---
EXAM DESCRIPTION: CHEST 2 VIEWS COMPLETED DATE/TIME: 11/02/2017 3:15 pm REASON FOR STUDY: coarse bs COMPARISON: 05/10/2016 EXAM PARAMETERS: NUMBER OF VIEWS: two views TECHNIQUE: Digital Frontal and Lateral radiographic views of the chest acquired. RADIATION DOSE: NA LIMITATIONS: none FINDINGS: LUNGS AND PLEURA: No opacities, masses or pneumothorax. No pleural effusion. There is mil d hyperexpansion. MEDIASTINUM AND HILAR STRUCTURES: No masses or contour abnormalities. HEART AND VASCULAR STRUCTURES: Heart normal size. No evidence for failure. BONES: No acute findings. HARDWARE: Unchanged. OTHER: No other significant finding. IMPRESSION: NO ACUTE RADIOGRAPHIC FINDING IN THE CHEST. TECHNICAL DOCUMENTATION: JOB ID: [id number] [employer]- All Rights Reserved Reading location - IP/workstation name: [email or web address]
[2017-11-02 16:49] VITALS: BP 138/83
[2017-11-02 17:08] LABS: APPEARANCE,URINE CLEAR; BILIRUBIN,URINE NEGATIVE (NEGATIVE); COLOR,URINE YELLOW; GLUCOSE, URINE NEGATIVE (NEGATIVE); KETONES,URINE TRACE mg/dL (NEGATIVE); LEUKOCYTE ESTERASE,URINE NEGATIVE (NEGATIVE); NITRITE,URINE NEGATIVE (NEGATIVE); PROTEIN,URINE NEGATIVE (NEGATIVE); URINE SPECIFIC GRAVITY 1.019
--- NOTE | 2017-11-02 23:18 | ER Document Report ---
ED General - General Chief Complaint: Fall Injury Stated Complaint: FALL/FACIAL LACERATION Time Seen by Provider: 11/02/17 13:03 Mode of Arrival: Medic Notes: Patient is a 67-year-old male with Parkinson's disease that presents to the emergency department for chief complaint of head injury after fall. Patient reports that he fell out of bed, and believes he hit his head, but did not lose consciousness. Denies having any neck pain at this time. Denies any numbness, tingling or weakness in any of his extremities. Denies having any headache, lightheadedness, dizziness. He does complain of some low back pain which is chronic for him which he thinks is exacerbated from his fall, currently rates the back pain is a 4 out of 10, describes as a dull ache, nonradiating to the lower extremities. He denies any other complaints at this time. Per EMS the patient was reportedly hypotensive upon their arrival, but was alert. Past Medical History: Parkinson's, hypertension Past Surgical History: Neurostimulator Social History: Denies current tobacco, alcohol or drug use, currently resides at a [facility] facility. Family History: Reviewed and noncontributory for presenting illness Allergies: Reviewed, see documented allergy list. REVIEW OF SYSTEMS: Unless otherwise stated in this report the patient's positive and negative responses for review of systems for constitutional, eyes, ENT, cardiovascular, respiratory, gastrointestinal, neurological, genitourinary, musculoskeletal, and integumentary systems and related systems to the presenting problem are either as stated in the HPI or were not pertinent or were negative for the symptoms and/or complaints related to the presenting medical problem. PHYSICAL EXAMINATION: Vital signs reviewed, nursing noted reviewed. GENERAL: Well-appearing, well-nourished and in no acute distress. HEAD: Superficial abrasion noted to the mid forehead, normocephalic. EYES: Eyes appear normal, extraocular movements intact, sclera anicteric, conjunctiva are normal. ENT: nares patent, oropharynx clear without exudates. Moist mucous membranes. NECK: Normal range of motion, supple without lymphadenopathy, no midline tenderness or paraspinal tenderness to palpation, normal range of motion without pain LUNGS: Breath sounds clear to auscultation bilaterally and equal. No wheezes rales or rhonchi. HEART: Regular rate and rhythm without murmurs ABDOMEN: Soft, nontender, normoactive bowel sounds. No rebound, guarding, or rigidity. No masses appreciated. Back: No midline tenderness, some paraspinal tenderness in the lumbar spine, no midline tenderness to the thoracic or lumbar spine. EXTREMITIES: Nontender, good range of motion, no pitting or edema. NEUROLOGICAL: No focal neurological deficits. Moves all extremities spontaneously Motor and sensory grossly intact on exam. Resting tremor on exam PSYCH: Normal mood, normal affect. SKIN: Warm, Dry, normal turgor, no rashes or lesions noted on exposed skin TRAVEL OUTSIDE OF THE [place] IN LAST 30 DAYS: No - Related Data Allergies/Adverse Reactions: No Known Allergies Allergy (Unverified 01/14/16 07:45) Past Medical History - General Information source: Patient, Emergency Med Personnel, [facility] Records - Social History Smoking Status: Unknown if Ever Smoked Chew tobacco use (# tins/day): No Frequency of alcohol use: None Drug Abuse: None Family History: Reviewed & Not Pertinent Patient has suicidal ideation: No Patient has homicidal ideation: No - Past Medical History Cardiac Medical History: Reports: Hx Hypertension Renal/ Medical History: Denies: Hx Peritoneal Dialysis GI Medical History: Reports: Hx Gastroesophageal Reflux Disease Psychiatric Medical History: Reports: Hx Depression Past Surgical History: Reports: Hx Neurologic Surgery - brain stimulator, Other - electric stimulator - Immunizations Hx Diphtheria, Pertussis, Tetanus Vaccination: Yes Physical Exam - Vital signs Vitals: BP 98/60 L 11/02/17 14:24 Course - Re-evaluation Re-evalutation: Patient seen and examined vital signs reviewed. Laboratory data and imaging were ordered as appropriate for the patient's presenting symptoms and complaint, with consideration of any critical or life threatening conditions that may be associated with their obtained history and exam as noted above. Patient was treated with IV fluids, although his blood pressure was normotensive , upon arrival. Results were reviewed when available and demonstrated negative head CT, and blood work was unremarkable. The patient was re-evaluated and was stable, sitting up at the bedside, wanting to go home Evaluation was most consistent with closed head injury, mechanical fall Results were discussed with the patient at this point, after careful consideration I feel that that patient can be discharged from the emergency department, the patient was educated treatments and reasons to return to the emergency department based on their presumed diagnosis as noted above, they were advised to followup with a primary care physician in 2-3 days. Patient was agreeable to plan of care. *Note is created using voice recognition software and may contain spelling, syntax or grammatical errors. 11/02/17 23:16 11/02/17 23:17 11/02/17 23:17 - Vital Signs Vital signs: Temp Pulse Resp BP Pulse Ox 13 138/83 H 99 11/02/17 16:01 11/02/17 16:01 11/02/17 16:00 - Laboratory Result Diagrams: 11/02/17 14:49 11/02/17 14:49 Laboratory results interpreted by me: 11/02/17 11/02/17 14:49 16:45 Hgb 13.4 L RDW 14.5 H Urine Ketones TRACE H Urine Urobilinogen 2.0 H Discharge - Discharge Clinical Impression: Closed head injury Qualifiers: Encounter type: initial encounter Qualified Code(s): S09.90XA - Unspecified injury of head, initial encounter Fall Qualifiers: Encounter type: initial encounter Qualified Code(s): W19.XXXA - Unspecified fall, initial encounter Condition: Stable Disposition: HOME-SNF (ED ONLY) Additional Instructions: Please return to the emergency department if you have any worsening, or concern of your symptoms. Please return to the emergency department if you develop chest pain, difficulty breathing, severe abdominal pain, or ongoing vomiting. Please follow-up with your primary care physician in 2-3 days and any other recommended physicians. If prescribed, take all medications as directed. If you have any questions or concerns do not hesitate to return the emergency department for evaluation. Referrals: DINESH SHIN MD [Primary Care Provider] - Follow up as needed
== END 2017-11-02 15:17 ==
LOC: ER 12:48
DX: S01.81XA Laceration without foreign body of other part of head, initial encounter (principal); G20 Parkinson's disease; W06.XXXA Fall from bed, initial encounter; I10 Essential (primary) hypertension
CPT/HCPCS: 36415; 70450; 71046; 80048; 81001; 85025; 99284